=== PATIENT | female | born 1990 | race Caucasian/White ===

== ENCOUNTER 2023-11-30 09:53 | Outpatient (OUT) | payer BC, SELFPAY ==
--- NOTE | 2023-11-30 10:30 | US_ITS ---
The [address] [address] Patient Name: AMANDA PINEDA MRN: [id number] date: 1990 Sex: F Assigned Patient Location: [facility] Current Patient Location: Accession/Order Number: [id number] Exam Date: 11/30/2023 10:30 Report Date: 12/01/2023 07:50 At the request of: SUSAN TREVIÑO Procedure: US pelvis w/ transvaginal EXAMINATION: US pelvis w/ transvaginal HISTORY: DYSPAREUNIA MENORRHAGIA COMPARISON: No relevant comparison available. FINDINGS: PICC line transabdominal and transvaginal images The uterus is normal in size, contour and echotexture measuring 9.4 x 4.8 x 6.7 cm. The uterus is anteverted and anteflexed. No focal myometrial mass. The endometrium measures 1.5 cm, correlate with the menstrual cycle The right ovary is normal showing 2.8 x 2.1 x 2.6 cm. Normal color and Doppler flow. Normal subcentimeter follicles. The left ovary is normal measuring 2.8 x 2.1 x 3.0 cm. Normal color and Doppler flow. Normal subcentimeter follicles. US/US pelvis w/ transvaginal IMPRESSION: Endometrial stripe measures 1.5 cm, correlate with the menstrual cycle Electronically authenticated by: NATALIE SUERO Date: 12/01/2023 07:50
== END 2023-11-30 09:54 | disposition home or self-care (01) ==
LOC: NOMS 09:53
PROVIDERS: PCP Family Medicine; Visit Provider Obstetrics & Gynecology
DX: N94.10 Unspecified dyspareunia (principal); N92.0 Excessive and frequent menstruation with regular cycle
CPT/HCPCS: 76830; 76856

== ENCOUNTER 2023-12-25 14:47 | Outpatient (OUT) | payer BC, SELFPAY | END 2023-12-25 14:48 | disposition home or self-care (01) | LOC: PST 14:47 | PROVIDERS: PCP Family Medicine; Visit Provider Urology | DX: Z01.818 Encounter for other preprocedural examination (principal); R32 Unspecified urinary incontinence; K21.9 Gastro-esophageal reflux disease without esophagitis; I10 Essential (primary) hypertension ==

== ENCOUNTER 2023-12-28 07:41 | Day surgery (SDC) | payer BC, SELFPAY ==
[2023-12-28] MEDS: LIDOCAINE 2% JELLY 10 ML UR (08:37)
[2023-12-28 08:38] VITALS: BP 145/65; PULSE 83; O2SAT 100
[2023-12-28 08:48] VITALS: BP 134/70; PULSE 82; O2SAT 100
--- NOTE | 2023-12-28 08:53 | PM.URSON ---
Urology Surgery Operative Note Operative Note Procedure Date: 12/28/23 Time Out Performed: yes Pre-op Diagnosis: Stress incontinence Post-op Diagnosis: same as pre-op Procedures performed: 1. Cystoscopy. 2. Pelvic exam Anesthesia: local Primary Surgeon: Amor Suarez Complications: None Estimated blood loss (mL): 0 Findings: 1. Grade 1 cystocele. 2. Posterior laxity. 3. Significant stress incontinence Specimens: None Drains: None Indications for Procedures: This lady has rather significant mixed incontinence. Most of this seems to be in the form of stress. She is attempting to get started on Myrbetriq 25 mg daily to control her urge component, but she is having difficulty getting the generic version. She now presents for cystoscopy. She has signed an informed consent after risks were explained to Detailed description of Procedure: The patient was kept on the gurney bed and brought into the endoscopy suite. She was in the supine position. Timeout was done by all parties in the room. We all agreed upon the patient's identification and the planned procedures for this patient. 2% lidocaine gel was passed per urethra after her genitalia were sterilely prepped and draped in the usual fashion. I started by passing flexible cystoscope per urethra and into the bladder. The urethra was unremarkable. Careful panendoscopy in the bladder revealed no evidence of any tumors, stones or lesions. The scope was retroverted upon itself and no new findings were noted. The scope was then removed after the patient felt very full. I then had her do the Valsalva maneuver and she had very significant stress incontinence in the form of a stream. She also demonstrated grade 1 cystocele and definite posterior laxity. We then had a discussion regarding the purpose of a mid urethral vaginal sling and that urgency could be a persistent component after getting this procedure done. She demonstrated understanding. She was then discharged to home.
== END 2023-12-28 09:00 | disposition home or self-care (01) ==
PROVIDERS: PCP Family Medicine; Visit Provider Urology
PROC: (CPT 52000; principal; 2023-12-28 08:15)
DX: N39.46 Mixed incontinence (principal); N81.10 Cystocele, unspecified
CPT/HCPCS: 52000

== ENCOUNTER 2024-02-08 13:22 | Outpatient (REF) | payer BC, SELFPAY | END 2024-02-08 13:23 | disposition home or self-care (01) | LOC: LAB 13:22 | PROVIDERS: PCP Family Medicine; Visit Provider Obstetrics & Gynecology | DX: N92.0 Excessive and frequent menstruation with regular cycle (principal) | CPT/HCPCS: 88305 ==

== ENCOUNTER 2024-02-18 10:58 | Outpatient (OUT) | payer BC, SELFPAY ==
--- OUTSIDE RECORDS SUMMARY | 2024-02-18 11:15 | XMS_ITS | CCD ---
Author Organization [facility] Care Team Providers Care Finish Opener Name Role Phone PIPPA ISLAS Primary Care Physician Amor SUAREZ Attending Unavailable Amor SUAREZ Attending Unavailable Pippa Islas MD Primary Care Provider MASHA SIMON Attending Unavailable SHEILA SANTIAGO Attending Unavailable SUSAN SUH Attending Unavailable SHEILA SANTIAGO Referring Unavailable SUSAN SUH Attending Unavailable Unavailable Primary Care Provider UnavailCALEB Wright Attending Unavailable SUSAN SUH Referring Unavailable Allergies Allergy Classification Reported Allergen(s) Allergy Type Date of Onset Reaction(s) Facility (6 sources) Latex; Translations: [Latex] Propensity to adverse reactions to substance 4 Swelling (finding), Eruption of skin (disorder), Rash, Swelling [facility] (2 sources) Salicylic Acid; Translations: [SALICYLATES] Drug Allergy 4 Other [facility] (1 source) Other Allergy to substance 4 Diarrhea [facility] (2 sources) Salicylic Acid Drug Allergy 4 [facility] (2 sources) MILK CONTAINING PRODUCTS (DAIRY); Translations: [MILK CONTAINING PRODUCTS (DAIRY)] Propensity to adverse reactions to food (disorder) 4 Diarrhea [facility] Medications Current Medications Medication Drug Class(es) Dates Sig (Normalized) Sig (Original) 24 hr mirabegron 25 mg extended release oral tablet (1 source) beta3-Adrenergic Agonist Start: 12-21-2023 take 1 tablet by mouth once daily Myrbetriq 25 mg oral tablet, extended release 25 mg = 1 tab(s), Oral, Daily, # 30 tab(s), Refills(s) 11, Pharmacy: [id number], 168, cm, 12/21/23 9:28:00 EDT, Height/Length Dosing, 82, kg, 12/21/23 9:28:00 EDT, Weight Dosing Start Date: 12/21/23 Status: Ordered tumeric, vitamin D, vitamin C, zinc powder (1 source) Start: 12-21-2023 tumeric, vitamin D, vitamin C, zinc powder tumeric, vitamin D, vitamin C, zinc powder, Oral, Daily Start Date: 12/21/23 Status: Ordered Turmeric extract (2 sources) turmeric 400 mg capsule Take by mouth. Active Turmeric (QC PAULETTE CHRISTIANO COMPLEX PO) Take by mouth Active vibegron (GEMTESA) 75 mg tablet (1 source) Start: 02-16-2024 take 1 tablet by mouth in the morning vibegron (GEMTESA) 75 mg tablet Take 75 mg by mouth in the morning. 30 tablet 5 02/16/2024 Active Vitamin C-Vitamin D-Zinc (D3/VITAMIN C/ZINC PO) (1 source) Vitamin C-Vitami n D-Zinc (D3/VITAMIN C/ZINC PO) Take by mouth Active Completed/Discontinued Medications Medication Drug Class(es) Dates Sig (Normalized) Sig (Original) cephalexin 500 mg oral capsule (1 source) Cephalosporin Antibacterial Start: 12-21-2023 End: 12-23-2023 take 1 tablet by mouth once daily Keflex 500 mg Cap 500 mg = 1 cap(s), Oral, Daily, Take one tab one day prior to the procedure and then one tab after the procedure, X 2 day(s), # 2 cap(s), Refills(s) 0, Pharmacy: [id number], 168, cm, 12/21/23 9:28:00 EDT, Height/Length Dosing, 82, kg, 12/21/23 9:28:00 EDT, Weight Dosing Start Date: 12/21/23 Stop Date: 12/23/23 Status: Ordered Problems Problem Classification Problem Date Documented Date Episodic/Chronic Abdominal pain (1 source) Pain in female pelvis; Translations: [Pelvic and perineal pain] 02-09-2024 Episodic Attention-deficit, conduct, and disruptive behavior disorders (1 source) Attention deficit hyperactivity disorder 12-17-2023 Chronic Esophageal disorders (1 source) Gastroesophageal reflux disease 12-17-2023 Chronic Essential hypertension (1 source) Hypertensive disorder 12-21-2023 Chronic Genitourinary symptoms and ill-defined conditions (9 sources) Mixed incontinence; Translations: [Incontinence] Onset: 12-21-2023 Chronic Headache; including migraine (1 source) Headache 12-21-2023 Episodic Menstrual disorders (1 source) Menorrhagia; Translations: [Excessive and frequent menstruation with regular cycle] 02-09-2024 Chronic Mood disorders (1 source) Depressive disorder 12-17-2023 Chronic Other diseases of bladder and urethra (2 sources) Overactive bladder; Translations: [Overactive bladder] Onset: 02-16-2024 02-16-2024 Chronic Other female genital disorders (1 source) Abnormal uterine bleeding; Translations: [Abnormal uterine and vaginal bleeding, unspecified] 02-09-2024 Chronic Other female genital disorders (1 source) Unspecified dyspareunia; Translations: [Unspecified dyspareunia] Onset: 02-15-2024 Chronic Other female genital disorders (1 source) Pain in female genitalia on intercourse 02-16-2024 Chronic Other female genital disorders (1 source) Disorder of vulva; Translations: [Other specified conditions associated with female genital organs and menstrual cycle] 02-09-2024 Episodic Other female genital disorders (1 source) Hypertrophy of labia; Translations: [Unspecified hypertrophy of vulva] 02-09-2024 Episodic Results Test Name Value Interpretation Reference Range Facility Measure post void residualon 02-15-2024 Volume 69 CC [facility] POCT urinalysis dipstick onl yon 02-15-2024 External Poct Urine Blood Negative [facility] External Poct Urine Glucose Negative [facility] External Poct Urine Ketones Negative [facility] External Poct Urine Leukocyte Esterase Negative [facility] External Poct Urine Nitrite Negative [facility] External Poct Urine Ph 5 [facility] External Poct Urine Protein Negative [facility] HCG ( test) Ql (U)o n 02-09-2024 Interpretation and review of laboratory results Normal [facility] Healthcare Preg Test, Ur Negative Negative [facility] Health care [facility] Ambulatory Visit Summaryon 1 Ambulatory Visit Summary Ambulatory Visit Summary FLACA ARNOLD :1990 Visit Date:12/21/2023 Ambulatory Visit Instructions Your Diagnosis Mixed incontinence Your Care Team Attending Physician - MILES MOHR, Amor Jacobs Primary Care Physician - ROSHAN MOHR, PIPPA Perrin This Is Your Medications List Contact prescribing physician if questions or concerns Non-Formulary Medication (tumeric, vitamin D, vitamin C, zinc powder) Procedures Performed Tonsillectomy. Discharge Vitals Heart Rate (Peripheral) 88 Respiratory Rate 16 Blood Pressure 148/94 Height 168 cm Height 66 in Weight 82 kg Weight 180.4 lb BMI 29.05 What to do next You Need to Schedule the Following Appointments Follow Up with MILES MOHR, ISAAC Mc When: Comments: sched cysto w/ pelvic exam Where: [facility] [address], [place] [address]- [phone] Medications What How Much When Instructions Unchanged Non-Formulary Medication (tumeric, vitamin D, vitamin C, zinc powder) Every day Contact prescribing physician if questions or concerns Allergies Latex (Swelling, Rash) Problems Ongoing - Any problem that you are currently receiving treatment for. ADHD Depression GERD (gastroesophageal reflux disease) Headache Hypertension Mixed incontinence Patient Survey You may receive a survey via text or e-mail asking about your office visit. Please share your experience with us by completing your survey. We appreciate your feedback and thank you for choosing us for your care. Education Materials Cystoscopy Cystoscopy is a procedure that is used to help diagnose and sometimes treat conditions that affect the lower urinary tract. The lower urinary tract includes the bladder and the urethra. The urethra is the tube that drains urine from the bladder. Cystoscopy is done using a thin, tube-shaped instrument with a light and camera at the end (cystoscope). The cystoscope may be hard or flexible, depending on the goal of the procedure. The cystoscope is inserted through the urethra, into the bladder. Cystoscopy may be recommended if you have: ? Urinary tract infections that keep coming back. ? Blood in the urine (hematuria). ? An inability to control when you urinate (urinary incontinence) or an overactive bladder. ? Unusual cells found in a urine sample. ? A blockage in the urethra, such as a urinary stone. ? Painful urination. ? An abnormality in the bladder found during an intravenous pyelogram (IVP) or CT scan. Cystoscopy may also be done to remove a sample of tissue to be examined under a microscope (biopsy). Tell a health care provider about: ? Any allergies you have. ? All medicines you are taking, including vitamins, herbs, eye drops, creams, and wlso-jer-azwjsyz medicines. ? Any problems you or family members have had with anesthetic medicines. ? Any blood disorders you have. ? Any surgeries you have had. ? Any medical conditions you have. ? Whether you are or may be . What are the risks? Generally, this is a safe procedure. However, problems may occur, including: ? Infection. ? Bleeding. ? Allergic reactions to medicines. ? Damage to other structures or organs. What happens before the procedure? Medicines Ask your health care provider about: ? Changing or stopping your regular medicines. This is especially important if you are taking diabetes medicines or blood thinners. ? Taking medicines such as aspirin and ibuprofen. These medicines can thin your blood. Do not take these medicines unless your health care provider tells you to take them. ? Taking ejyg-sca-ndtclfv medicines, vitamins, herbs, and supplements. Tests You may have an exam or testing, such as: ? X-rays of the bladder, urethra, or kidneys. ? CT scan of the abdomen or pelvis. ? Urine tests to check for signs of infection. General instructions ? Follow instructions from your health care provider about eating or drinking restrictions. ? Ask your health care provider what steps will be taken to help prevent infection. These steps may include: ? Washing skin with a germ-killing soap. ? Taking antibiotic medicine. ? Plan to have a responsible adult take you home from the hospital or clinic. What happens during the procedure? ? You will be given one or more of the following: ? A medicine to help you relax (sedative). ? A medicine to numb the area (local anesthetic). ? The area around the opening of your urethra will be cleaned. ? The cystoscope will be passed through your urethra into your bladder. ? Germ-free (sterile) fluid will flow through the cystoscope to fill your bladder. The fluid will stretch your bladder so that your health care provider can clearly examine your bladder judd. ? Your doctor will look at the urethra and bladder. Your doctor may (more content not included)... Normal [facility] Urology Office/Clinic Noteon 12-21-2023 Urology Office/Clinic Note Urology Office/Clinic Note Chief Complaint New patient urinary retention HPI Staff 33 year old female new patient referred by Dr. Suh for urinary incontinence. Mixed incontinence x 2 years. Dysuria: denies Incomplete bladder emptying: yes, PVR: 0 ml Hematuria: denies Frequency: once every hour Urgency: yes Nocturia: 2 x a night Stream: denies hesitancy, has a strong stream Leaking: yes Post void dripping: denies Wearing pads/ Depends: pads daily, if need changing would change 3-4 x a day Urge incontinence: yes Stress incontinence: coughing, sneezing, etc Incontinence without Sensory Awareness: denies Abdominal pain: denies Flank pain: right side pain off and on. Sexual complaints: _ History of Present Illness Tests reviewed: reviewed UA, PVR, referral records I have reviewed the previous health record information and history for this patient from external providers. I have reviewed and verified the staff HPI to be accurate for this encounter. Review of Systems PHQ Score Initial Depression Screen Score: 0 SCORE ROS - Provider Constitutional: denies weight loss, denies hot flashes. Eyes: denies eye problems. Gastrointestinal: denies nausea, denies vomiting. Cardiovascular: denies chest pain or angina. Integumentary: no dryness Musculoskeletal: denies musculoskeletal symptoms. ENMT: denies otolaryngeal symptoms. Respiratory: no shortness of breath. Heme/Lymph: denies easy bleeding tendency, denies easy bruising tendency. Psychiatric: no confusion, no anxiety. Genitourinary: See HPI. Physical Exam Vitals & Measurements HR: 88(Peripheral) RR: 16 BP: 148/94 HT: 66 in HT: 168 cm WT: 82 kg WT: 180.4 lb BMI: 29.05 General Appearance: alert , no acute distress, well nourished, well developed female. Assessment/Plan Flaca is a 33 yo female new pt referred by Dr. Suh for urinary incontinence. Has plans to get labioplasty and endometrial ablation. 1. Mixed incontinence (N39.46: Mixed incontinence) BBS 23. Vaginal delivery of 10lb, 6oz baby ~2yrs ago (no plans to have more children). Feels this caused almost all her urinary sxs. Did wear a pad for NATASHA prior to . Shares she limits water intake at times given severe urgency. Also has two pairs of underwear on hand when in public. Unable to do any physically activity, including raising her voice, without leaking. Wears pads which she soaks through when jumping or running. States she goes to the bathroom frequently during the day to prevent leakage, unsure if it is fully related to urgency or OAB. Voiding q1hr during the day. Able to make it to the bathroom. Unable to sleep during the night due to concerns for wetting herself. Reports she has more difficulty with emptying when drinking water vs when drinking decaf coffee. Shares she tries to drink 100oz of water per day. PVR today 0 mL. UA today negative for blood and infection. Hx of 2-3 UTIs, most recent during gestation. Discussed next steps including cysto with pelvic exam to evaluate candidacy for treatment options. Advised pt oral medications are typical treatment for urgency/UUI. Shares she prefers to avoid medications. Educated pt on risks/benefits/possib le SEs of bladder meds. Also discussed further research and evaluation will need done for starting medication given she is currently (does not have current plans to stop, possibly in the next year). Reports suggest it is safe to start with breast feeding. States she would be willing try medication. Volunteers she only breastfeeds prior to bedtime and feels benefits outweigh risks. -Will schedule cystoscopy with pelvic exam. The risks and benefits for cystoscopy have been discussed. The risks include bleeding, infection, and irritation of the bladder and urinary channel, among others. The patient, after being informed of procedural details and after questions have been answered, wishes to proceed. Full informed consent has been obtained. Will order Local anesthesia. -Start Myrbetriq ER 25mg qd. Rx sent to [facility]. Follow-up With When Contact Information MILES MOHR, Amor Jacobs, [facility] [address], [place] [address]- [phone] Additional Instructions: sched cysto w/ pelvic exam Patient Education Cystoscopy Urinary Incontinence I, Liz Daugherty, personally scribed for Dr. Suarez on 12/21/2023 10:07:37. . Documentation recorded by the scribe, Liz Daugherty, accurately reflects the services(s) I performed and decisions made by me. Authenticated by Dr. Suarez on 12/21/2023 10:15:41. Problem List/Past Medical History Ongoing ADHD Depression GERD (gastroesophageal reflux disease) Headache Hypertension Mixed incontinence Historical No qualifying data Procedure/Surgical History Tonsillectomy. Medications tumeric, vitamin D, vitamin C, zinc powder, Oral, Daily Allergies Latex (Swelling, Rash) Family (more content not included)... Normal [facility] Comment on above: Result Comment: Elec tronically Signed By: Amor SUAREZ MD\.br\Date and Time Signed: 12/21/23 10:15 EDT\.br\Electronically Co-Signed By: Liz Daugherty\.br\Date and Time Co-Signed: 12/21/23 10:08 EDT\.br\Electronically Co-Signed By: Liz Daugherty\.br\Date and Time Co-Signed: 12/21/23 10:12 EDT Vital Signs Date Time Vital Sign Value Performing Clinician Facility 02-15-2024 13:13-0500 Body height 165.7 cm Caleb Hurtado MD Work Phone: [facility] 02-15-2024 13:13-0500 Body mass index (BMI) [Ratio] 32.53 kg/m2 Caleb Hurtado MD Work Phone: [facility] 02-15-2024 13:13-0500 Body weight 89.36 kg Caleb Hurtado MD Work Phone: [facility] 02-15-2024 13:13-0500 Diastolic blood pressure 77 mm[Hg] Caleb Hurtado MD Work Phone: [facility] 02-15-2024 13:13-0500 Heart rate 91 /min Caleb Hurtado MD Work Phone: [facility] 02-15-2024 13:13-0500 Systolic blood pressure 125 mm[Hg] Caleb Hurtado MD Work Phone: [facility] 02-09-2024 13:38-0500 Body mass index (BMI) [Ratio] 31.71 kg/m2 Susan Angeli DO Work Phone: [facility] 02-09-2024 13:38-0500 Body weight 87.09 kg Susan Angeli DO Work Phone: [facility] 02-09-2024 13:38-0500 Diastolic blood pressure 70 mm[Hg] Susan Angeli DO Work Phone: [facility] 02-09-2024 13:38-0500 Systolic blood pressure 110 mm[Hg] Susan Angeli DO Work Phone: [facility] 12-21-2023 09:21-0400 Blood Pressure Location Amor SUAREZ [facility] 12-21-2023 09:21-0400 Diastolic blood pressure 94 mm[Hg] Amor SUAREZ [facility] 12-21-2023 09:21-0400 Heart rate 88 /min Amor SUAREZ [facility] 12-21-2023 09:21-0400 Respiratory rate 16 /min Amor SUAREZ [facility] 12-21-2023 09:21-0400 Systolic blood pressure 148 mm[Hg] Amor SUAREZ [facility] Encounters Encounter Date Encounter Type Care Provider Facility Start: 02-15-2024 End: 02-15-2024 Chart abstracting Caleb Hurtado MD Work Phone: [facility] Start: 02-15-2024 End: 02-15-2024 [facility]ulatory [facility] Start: 02-15-2024 End: 02-15-2024 Office outpatient new 45 minutes Caleb Hurtado MD Work Phone: [facility] Comment on above: Mixed stress and urg e urinary incontinence (Primary Dx); OAB (overactive bladder) Start: 02-09-2024 End: 02-09-2024 ambulatory SUSAN ANGELI Not Available Start: 02-09-2024 End: 02-09-2024 Patient encounter procedure Susan Suh DO Work Phone: [facility] Comment on above: Pre-op examination; Menorrhagia with regular cycle; Abnormal uterine bleeding (AUB); Pelvic pain in female; Labial pain; Labia enlarged Start: 02-09-2024 End: 02-09-2024 Preprocedural examination done Susan Suh DO Work Phone: [facility] Start: 12-28-2023 End: 12-28-2023 ambulatory Amor Reynaldo SUAREZ Facility:CD:[id number] Start: 12-21-2023 End: 12-21-2023 ambulatory Amor SUAREZ Facility:[facility] Start: 12-21-2023 End: 12-21-2023 Patient encounter procedure Amor Reynaldo SUAREZ [facility] Start: 11-24-2023 ambulatory Amor SUAREZ Facility :[facility] Start: 11-18-2023 End: 11-18-2023 ambulatory SUSAN SUH Not Available Start: 10-12-2023 End: 10-12-2023 ambulatory SHEILA SANTIAGO Not Available Start: 09-09-2023 End: 09-09-2023 ambulatory MASHA ALFRED Not Available Procedures Date Procedure Procedure Detail Performing Clinician Start: 02-15-2024 MEASURE POST VOID RESIDUAL Caleb Hurtado MD Work Phone: Start: 02-15-2024 Urnls dip stick/tabl et rgnt non-auto w/o micrscp Caleb Hurtado MD Work Phone: Start: 02-09-2024 Urine test visual color cmprsn meths Susan Sorianoo DO Work Phone: Tonsillectomy Amor SUAREZ Plan of Treatment Date Care Activity Detail Author Start: 02-14-2025 Adult BMI Screening Adult BMI Screen ing [facility] Start: 02-14-2025 Tobacco Screening Tobacco Screening [facility] Start: 06-15-2024 End: 06-15-2024 Patient encounter procedure 06/15/2024 3:00 PM EDT Office Visit [facility] [address] [place] [address] Caleb Hurtado MD [address] [facility] [address] [place] [address] [facility] Start: 03-14-2024 End: 03-14-2024 Patient encounter procedure 03/14/2024 2:30 PM EST Office Visit [facility] [address] [place] [id number] Janene Maria PA [address] [place] [address] [facility] Start: 11-15-2023 Influenza vaccination N [facility] Start: 06-26-2021 Screening for malign ant neoplasm of cervix [facility] Start: 06-26-2012 Screening for malign ant neoplasm of cervix Pap Smear [facility] Start: 06-26-2010 DTaP,Tdap and Td Vaccines (1 - Tdap) DTaP,Tdap and Td Vaccines (1 - Tdap) [facility] Start: 06-26-2009 Adult BMI Follow Up Plan Adult BMI Follow Up Plan [facility] Start: 2003 Depression Screening Depression Scre ening [facility] Endometrial biopsy Endometrial b iopsy Procedures Routine Menorrhagia with regular cycle Ordered: 02/09/2024 [facility] Work Phone: Comment on above: Ordered: 02/09/2024 Immunizations Immunization Date Immunization Notes Care Provider Fa cility 11-25-2020 SARS-CoV-2 (COVID-19 ) mRNA BNT-162b2 jeffx Amor SUAREZ [facility] Comment on above: Result Comment: 2023: [facility] Payers Date Payer Category Payer Unknown [id number] 2023 [employer] Blue [employer] BCBS [id number] 2023 Blue Cross Blue [facility] - Other [employer] [id number] 2023 Unknown [id number] 1990 Unknown [id number] 1990 Unknown [id number] 1990 Unknown [id number] .[id number] 1990 Unknown [id number] 1990 Unknown [id number] 1990 Unknown [id number] 1990 Unknown [id number] 1990 Unknown [id number] Social History Date Type Detail Facility Tobacco smoking status [facility] Start: 09-08-2023 End: 02-15-2024 Sex Assigned At Female [facility] Start: 09-09-2023 End: 02-15-2024 Tobacco smoking status NHIS Never smoked tobacco [facility] Start: 09-09-2023 End: 02-15-2024 Tobacco use and exposure Smokeless tobacco non-user [facility] Start: 11-18-2023 End: 02-16-2024 Alcoholic beverage intake Current drinker of alcohol (finding) [facility] Start: 09-08-2023 End: 02-15-2024 History of Social function [facility] How often do you nee d to have someone help you when you read instructions, pamphlets, or other written material from your doctor or pharmacy [SILS] Never [facility] Do you belong to any clubs or organizations such as buddhism groups, unions, fraternal or athletic groups, or school groups? No [facility] Are you now , , , , never or living with a partner? [facility] How often to you hav e a drink containing alcohol? Monthly or less [facility] How many standard dr inks containing alcohol do you have on a typical day? 1 or 2 [facility] How often do you hav e 6 or more drinks on 1 occasion? Less than monthly [facility] How hard is it for y ou to pay for the very basics like food, housing, medical care, and heating Somewhat hard [facility] Do you feel stress - tense, restless, nervous, or anxious, or unable to sleep at night because your mind is troubled all the time - these days [OSQ] Only a little [facility] (I/We) worried wheth er (my/our) food would run out before (I/we) got money to buy more. Never true [facility] Start: 1990 Sex assigned at Female [facility] Start: 09-07-2023 Gender identity Identifies as female gender (finding) [facility] Start: 09-07-2023 Sexual orientation Heterosexual (finding) [facility] Start: 1990 Sex assigned at Not on file [facility] Start: 10-19-2014 Sex Female (finding) [facility] Functional Status Date Assessment Result Facility 12-21-2023 Functional Status N/A [facility] History of Present illness Narrative 02-15-2024 Caleb Hurtado MD - 02/15/2024 1:15 PM EST Note Date & Type Note Facility 02-15-2024 History of Presen t illness Narrative SUBJECTIVE Chief Complaint: UI HPI Ms. Flaca Arnold is a 33 y.o. 1 para 1 who is referred by for evaluation of urinary incontinence. She is here for a 2nd opinion and was previously seen by . She is scheduled to undergo bilateral salpingectomy, endometrial ablation, bilateral labioplasty, with Dr. Suh on March 02, 2024. She was considering undergoing treatment for urinary incontinence concomitantly and had urodynamic testing with Dr. Suarez. She was offered a urethral sling. She wanted to discuss her options with the another provider. She notes urinary incontinence which has been present for many years. It has gotten worse since the of her trialed about 2 years ago. She leaks several times daily in variable amounts. She uses 1-2 pads per day. Most of her leakage occurs with Valsalva. Urge related leakage is rare. She notes urinary frequency but this is primarily due to her trying to avoid leakage. She voids twice nightly. No dysuria, gross hematuria, recurrent infections, symptoms of voiding dysfunction. She has previously tried pelvic floor physical therapy. She is unsure if this was helpful. She has an appointment to restart pelvic floor physical therapy soon. She reports that she underwent urodynamic testing and was told that she had stress incontinence. She denies symptoms of prolapse. She denies chronic constipation, chronic diarrhea, and fecal incontinence. Past Medical History: Diagnosis Date ADHD Depression GERD (gastroesophageal reflux disease) Past Surgical History: Procedure Laterality Date TONSILLECTOMY Social History Tobacco Use Smoking status: Never Smokeless tobacco: Never Substance Use Topics Alcohol use: Yes Drug use: Yes Types: Marijuana No family history on file. Current Outpatient Medications: turmeric 400 mg capsule, Take by mouth., Disp: , Rfl: ALLERGIES Milk containing products (dairy), Salicylates, and Latex OBJECTIVE VITAL SIGNS BP 125/77 Pulse 91 Ht 165.7 cm (5' 5.25 ) Wt 89.4 kg (197 lb) LMP 02/05/2024 No BMI 32.53 kg/m PHYSICAL EXAM Constitutional: General: She is not in acute distress. Cardiovascular: Rate: Normal rate. Lower extremity edema: none. Pulmonary: Effort: No respiratory distress, normal effort. Abdominal: General: There is no distension. Palpations: Abdomen is soft. There is no hepatomegaly, splenomegaly or mass. Tenderness: There is no abdominal tenderness. Hernia: No hernia is observable. Pelvic: External exam Vulva and introitus: Normal appearance for age, no lesions, no erythema. Urethra: No prolapse, mass, urethral pain or urethral lesion. Bladder: Not tender, no distention. Bartholin's glands: Normal size, non-tender. Perineum/anus: Normal appearance, no lesions or hemorrhoids. Internal exam Vagina: Mucosa is healthy and pink, no discharge. Cervix: Normal os, no lesions, no cervical motion tenderness. Uterus: Normal size and position, mobile, no tenderness, no masses. Adnexa: Bimanual exam limited per body habitus, ovaries not palpable, no tenderness or masses. Rectum: CLARY deferred. Pelvic floor spasm/myalgia: None Leakage with hard coughing or Valsalva? not present Modified Pershing Scale 0-5: 1, minor muscle flicker POP-Q: Negative Standing Stress Test: Negative Voided Volume: 180 mL Results for orders placed or performed in visit on 02/15/24 POCT urinalysis dipstick only Collection Time: 02/15/24 1:35 PM Result Value Ref Range External Poct Urine Glucose Negative External Poct Urine Ketones Negative External Poct Urine Blood Negative External Poct Urine Ph 5.0 External Poct Urine Protein Negative External Poct Urine Nitrite Negative External Poct Urine Leukocyte Esterase Negative Measure post void residual Collection Time: 02/15/24 1:35 PM Result Value Ref Range Volume 69 CC ASSESSMENT/PLAN ICD-10-CM 1. Mixed stress and urge urinary incontinence N39.46 2. OAB (overactive bladder) N32.81 Impression and Plan: 33 y.o. female P1 with stress predominant mixed urinary incontinence. We discussed incontinence at length including epidemiology, pathophysiology, risk factors for development, associated symptoms, and treatment options. We discussed treatment options, from least to most invasive, including expectant management, strengthening the pelvic floor with Kegel exercises and/or pelvic floor physical therapy, dietary and behavioral modification, medication trial, continence pessary, and surgical management options. She was provided with written information on incontinence and overactive bladder from . She desires conservative management at this point and plans to proceed with her scheduled pelvic floor physical therapy appointment. In addition, she would like to move forward with a medication trial. She states that Myrbetriq is not covered by her insurance but Gemtesa may be. This has been sent to her pharmacy. She was counseled regarding potential side effects. We will reassess symptoms in 3 months. This chart note was put together with the assistance of a speech recognition program. While intending to generate a timely document that accurately reflects the contents of the visit, no guarantee can be provided that every grammatical or spelling mistake has been or will be identified or corrected. Thank you for your understanding when reviewing this and similarly generated notes. documented in this encounter [facility] History of Present illness Narrative 02-09-2024 Eladia Tequila - 02/09/2024 1:00 PM EST Note Date & Type Note Facility 02-09-2024 History of Presen t illness Narrative Images from the original note were not included. Reason for Appointment: Patient ID: Flaca Arnold is a 33 y.o. female who presents for Pre-op Visit and Endometrial Biopsy Patient presents today for Pre Op/Endometrial Biopsy appointment. Patient is scheduled to undergo Da Hugh assisted Bilateral Laparoscopic Salpingectomy, Endometrial Ablation with Katherine, and Labiaplasty on 03/02/[address] Suh at [facility]. MEDICATIONS Current Outpatient Medications Medication Instructions Turmeric (QC TUMERIC COMPLEX PO) Oral Vitamin C-Vitamin D-Zinc (D3/VITAMIN C/ZINC PO) Oral ALLERGIES Allergies Allergen Reactions Other Diarrhea Latex Rash and Swelling Salicylates Other PROBLEMS Active Ambulatory Problems Diagnosis Date Noted No Active Ambulatory Problems Resolved Ambulatory Problems Diagnosis Date Noted No Resolved Ambulatory Problems Past Medical History: Diagnosis Date ADHD (attention deficit hyperactivity disorder) (CMS/HCC) Allergic Depression (CMS/HCC) GERD (gastroesophageal reflux disease) HISTORY PAST MEDICAL HISTORY SOCIAL HISTORY Past Medical History: Diagnosis Date ADHD (attention deficit hyperactivity disorder) (CMS/HCC) Allergic Depression (CMS/HCC) GERD (gastroesophageal reflux disease) Social History Tobacco Use Smoking status: Never Smokeless tobacco: Never Vaping Use Vaping status: Never Used Substance Use Topics Alcohol use: Yes Drug use: Yes Types: Marijuana FAMILY HISTORY No family history on file. SURGICAL HISTORY Past Surgical History: Procedure Laterality Date TONSILLECTOMY REVIEW OF SYSTEMS Review of Systems: Review of Systems Constitutional: Negative. HENT: Negative. Eyes: Negative. Respiratory: Negative. Cardiovascular: Negative. Gastrointestinal: Negative. Genitourinary: Positive for dyspareunia, menstrual problem, pelvic pain, urgency and vaginal pain. Musculoskeletal: Negative. Skin: Negative. Neurological: Negative. All other systems reviewed and are negative. Hematological: Negative. Endocrine: Negative. Allergic/Immunologic: Negative. OBJECTIVE Objective: Physical Exam Constitutional: Appearance: Normal appearance. She is well-developed. Genitourinary: Vulva normal. Genitourinary Comments: Enlarged bilateral Labia with hole visualized on right side. Cardiovascular: Rate and Rhythm: Normal rate and regular rhythm. Pulmonary: Effort: Pulmonary effort is normal. Breath sounds: Normal breath sounds. Abdominal: General: Bowel sounds are normal. There is no distension. Palpations: Abdomen is soft. Tenderness: There is no abdominal tenderness. There is no guarding or rebound. Musculoskeletal: General: No swelling. Normal range of motion. Right lower leg: No edema. Left lower leg: No edema. Neurological: Mental Status: She is alert and oriented to person, place, and time. Skin: General: Skin is warm and dry. Psychiatric: Mood and Affect: Mood normal. Behavior: Behavior normal. Vitals and nursing note reviewed. Exam conducted with a health safety specialist present. Vitals: Estimated body mass index is 30.55 kg/m as calculated from the following: Height as of 09/09/23: 5' 5.25 . Weight as of 11/18/23: 185 lb. BP: No LMP recorded. ASSESSMENT & PLAN ICD-10-CM 1. Pre-op examination Z01.818 2. Menorrhagia with regular cycle N92.0 3. Abnormal uterine bleeding (AUB) N93.9 4. Pelvic pain in female R10.2 5. Labial pain N94.89 6. Labia enlarged N90.60 EMBX: Patient was placed in dorsal lithotomy position with feet in stirrups. A sterile speculum was placed into the vagina and the cervix was visualized. The cervix was grasped with a single tooth tenaculum. The endometrial pipette was placed through the cervix into the uterus, endometrial curettage was performed and sampling was obtained, endometrial curettings were placed in formalin, and single tooth tenaculum was removed. Excellent hemostasis was assured. All instruments were removed from vagina. Pre Op: Patient is doing well but has desire for sterilization and has complaints of bleeding, pelvic pain and labia discomfort. Patient has tried hormone therapy in the past but all attempts to subside patients issues of bleeding have failed. Patient has been examined and has been noted to have an enlarged labia with a hole that has form from scar tissue breaking down following her vaginal of her 10 lbs 6 oz baby that is causing labial pain and discomfort. Patient stated that this has been ongoing issue since her son was born on 12/22/2021 and the issue has increased over time. Patient stated she has tried using lubricant and creams vaginally to help with pain during intercourse and physical activity with no improvement. Surgicallly repairing her labia would be the best course of action to correct labia pain, hole in labia, and enlarged labia/atypical genitalia that has only worsened since childbearing years. I have discussed conservative management vs. surgical management with the patient in detail and patient desires surgical management at this time. Patient has voiced understanding that a Bilateral Salpingectomy is considered to be permanent and patient will undergo Da Hugh assisted Bilateral Laparoscopic Salpingectomy, Endometrial Ablation with Katherine, & Labiaplasty on 03/02/2024. Surgical consents were signed, mmc was reviewed, and patient is to proceed to [facility] OR. Follow Up: Patient is to follow up between 1-2 weeks post op to assess proper healing and recovery from procedure. Documented by Jacqueline Larios LPN on behalf of: Susan Suh DO documented in this encounter [facility] Discharge instructions 12-21-2023 Note Date & Type Note Facility 12-21-2023 Hospital Discharg e instructions Patient Education 12/21/2023 09:54:41 Cystoscopy Cystoscopy Cystoscopy is a procedure that is used to help diagnose and sometimes treat conditions that affect the lower urinary tract. The lower urinary tract includes the bladder and the urethra. The urethra is the tube that drains urine from the bladder. Cystoscopy is done using a thin, tube-shaped instrument with a light and camera at the end (cystoscope). The cystoscope may be hard or flexible, depending on the goal of the procedure. The cystoscope is inserted through the urethra, into the bladder. Cystoscopy may be recommended if you have: Urinary tract infections that keep coming back. Blood in the urine (hematuria). An inability to control when you urinate (urinary incontinence) or an overactive bladder. Unusual cells found in a urine sample. A blockage in the urethra, such as a urinary stone. Painful urination. An abnormality in the bladder found during an intravenous pyelogram (IVP) or CT scan. Cystoscopy may also be done to remove a sample of tissue to be examined under a microscope (biopsy). Tell a health care provider about: Any allergies you have. All medicines you are taking, including vitamins, herbs, eye drops, creams, and wypm-xqk-xaajyng medicines. Any problems you or family members have had with anesthetic medicines. Any blood disorders you have. Any surgeries you have had. Any medical conditions you have. Whether you are or may be . What are the risks? Generally, this is a safe procedure. However, problems may occur, including: Infection. Bleeding. Allergic reactions to medicines. Damage to other structures or organs. What happens before the procedure? Medicines Ask your health care provider about: Changing or stopping your regular medicines. This is especially important if you are taking diabetes medicines or blood thinners. Taking medicines such as aspirin and ibuprofen. These medicines can thin your blood. Do not take these medicines unless your health care provider tells you to take them. Taking eowd-kcc-qlfjnzp medicines, vitamins, herbs, and supplements. Tests You may have an exam or testing, such as: X-rays of the bladder, urethra, or kidneys. CT scan of the abdomen or pelvis. Urine tests to check for signs of infection. General instructions Follow instructions from your health care provider about eating or drinking restrictions. Ask your health care provider what steps will be taken to help prevent infection. These steps may include: ?Washing skin with a germ-killing soap. ?Taking antibiotic medicine. Plan to have a responsible adult take you home from the hospital or clinic. What happens during the procedure? You will be given one or more of the following: ?A medicine to help you relax (sedative). ?A medicine to numb the area (local anesthetic). The area around the opening of your urethra will be cleaned. The cystoscope will be passed through your urethra into your bladder. Germ-free (sterile) fluid will flow through the cystoscope to fill your bladder. The fluid will stretch your bladder so that your health care provider can clearly examine your bladder judd. Your doctor will look at the urethra and bladder. Your doctor may take a biopsy or remove stones. The cystoscope will be removed, and your bladder will be emptied. The procedure may vary among health care providers and hospitals. What can I expect after the procedure? After the procedure, it is common to have: Some soreness or pain in your abdomen and urethra. Urinary symptoms. These include: ?Mild pain or burning when you urinate. Pain should stop within a few minutes after you urinate. This may last for up to 1 week. ?A small amount of blood in your urine for several days. ?Feeling like you need to urinate but producing only a small amount of urine. Follow these instructions at home: Medicines Take ezod-fbx-ilrdnka and prescription medicines only as told by your health care provider. If you were prescribed an antibiotic medicine, take it as told by your health care provider. Do not stop taking the antibiotic even if you start to feel better. General instructions Return to your normal activities as told by your health care provider. Ask your health care provider what activities are safe for you. If you were given a sedative during the procedure, it can affect you for several hours. Do not drive or operate machinery until your health care provider says that it is safe. Watch for any blood in your urine. If the amount of blood in your urine increases, call your health care provider. Follow instructions from your health care provider about eating or drinking restrictions. If a tissue sample was removed for testing (biopsy) during your procedure, it is up to you to get your test results. Ask your health care provider, or the department that is doing the test, when your results will be ready. Drink enough fluid to keep your urine pale yellow. Keep all follow-up visits. This is important. Contact a health care provider if: You have pain that gets worse or does not get better with medicine, especially pain when you urinate. You have trouble urinating. You have more blood in your urine. Get help right away if: You have blood clots in your urine. You have abdominal pain. You have a fever or chills. You are unable to urinate. Summary Cystoscopy is a procedure that is used to help diagnose and sometimes treat conditions that affect the lower urinary tract. Cystoscopy is done using a thin, tube-shaped instrument with a light and camera at the end. After the procedure, it is common to have some soreness or pain in your abdomen and urethra. Watch for any blood in your urine. If the amount of blood in your urine increases, call your health care provider. If you were prescribed an antibiotic medicine, take it as told by your health care provider. Do not stop taking the antibiotic even if you start to feel better. This information is not intended to replace advice given to you by your health care provider. Make sure you discuss any questions you have with your health care provider. Document Revised: 11/13/2021 Document Reviewed: 10/12/2020 [employer] Patient Education 2023 [employer]. 12/21/2023 09:54:38 Urinary Incontinence Urinary Incontinence Urinary incontinence refers to a condition in which a person is unable to control where and when to pass urine. A person with this condition will urinate involuntarily. This means that the person urinates when he or she does not mean to. What are the causes? This condition may be caused by: Medicines. Infections. Constipation. Overactive bladder muscles. Weak bladder muscles. Weak pelvic floor muscles. These muscles provide support for the bladder, intestine, and, in women, the uterus. Enlarged prostate in men. The prostate is a gland near the bladder. When it gets too big, it can pinch the urethra. With the urethra blocked, the bladder can weaken and lose the ability to empty properly. Surgery. Emotional factors, such as anxiety, stress, or post-traumatic stress disorder (PTSD). Spinal cord injury, nerve injury, or other neurological conditions. Pelvic organ prolapse. This happens in women when organs move out of place and into the vagina. This movement can prevent the bladder and urethra from working properly. What increases the risk? The following factors may make you more likely to develop this condition: Age. The older you are, the higher the risk. Obesity. Being physically inactive. and childbirth. Menopause. Diseases that affect the nerves or spinal cord. Long-term, or chronic, coughing. This can increase pressure on the bladder and pelvic floor muscles. What are the signs or symptoms? Symptoms may vary depending on the type of urinary incontinence you have. They include: A sudden urge to urinate, and passing urine involuntarily before you can get to a bathroom (urge incontinence). Suddenly passing urine when doing activities that force urine to pass, such as coughing, laughing, exercising, or sneezing (stress incontinence). Needing to urinate often but urinating only a small amount, or constantly dribbling urine (overflow incontinence). Urinating because you cannot get to the bathroom in time due to a physical disability, such as arthritis or injury, or due to a communication or thinking problem, such as Alzheimer's disease (functional incontinence). How is this diagnosed? This condition may be diagnosed based on: Your medical history. A physical exam. Tests, such as: ?Urine tests. ?X-rays of your kidney and bladder. ?Ultrasound. ?CT scan. ?Cystoscopy. In this procedure, a health care provider inserts a tube with a light and camera (cystoscope) through the urethra and into the bladder to check for problems. ?Urodynamic testing. These tests assess how well the bladder, urethra, and sphincter can store and release urine. There are different types of urodynamic tests, and they vary depending on what the test is measuring. To help diagnose your condition, your health care provider may recommend that you keep a log of when you urinate and how much you urinate. How is this treated? Treatment for this condition depends on the type of incontinence that you have and its cause. Treatment may include: Lifestyle changes, such as: ?Quitting smoking. ?Maintaining a healthy weight. ?Staying active. Try to get 150 minutes of moderate-intensity exercise every week. Ask your health care provider which activities are safe for you. ?Eating a healthy diet. ?Avoid high-fat foods, like fried foods. ?Avoid refined carbohydrates like white bread and white rice. ?Limit how much alcohol and caffeine you drink. ?Increase your fiber intake. Healthy sources of fiber include beans, whole grains, and fresh fruits and vegetables. Behavioral changes, such as: ?Pelvic floor muscle exercises. ?Bladder training, such as lengthening the amount of time between bathroom breaks, or using the bathroom at regular intervals. ?Using techniques to suppress bladder urges. This can include distraction techniques or controlled breathing exercises. Medicines, such as: ?Medicines to relax the bladder muscles and prevent bladder spasms. ?Medicines to help slow or prevent the growth of a man's prostate. ?Botox injections. These can help relax the bladder muscles. Treatments, such as: ?Using pulses of electricity to help change bladder reflexes (electrical nerve stimulation). ?For women, using a certified court/medical interpreter to prevent urine leaks. This is a small, tampon-like, disposable device that is inserted into the urethra. ?Injecting collagen or carbon beads (bulking agents) into the urinary sphincter. These can help thicken tissue and close the bladder opening. ?Surgery. Follow these instructions at home: Lifestyle Limit alcohol and caffeine. These can fill your bladder quickly and irritate it. Keep yourself clean to help prevent odors and skin damage. Ask your health care provider about special skin creams and cleansers that can protect the skin from urine. Consider wearing pads or adult diapers. Make sure to change them regularly, and always change them right after experiencing incontinence. General instructions Take hxgz-yre-ewbttfp and prescription medicines only as told by your health care provider. Use the bathroom about every 3 4 hours, even if you do not feel the need to urinate. Try to empty your bladder completely every time. After urinating, wait a minute. Then try to urinate again. Make sure you are in a relaxed position while urinating. If your incontinence is caused by nerve problems, keep a log of the medicines you take and the times you go to the bathroom. Keep all follow-up visits. This is important. Where to find more information National [place] of Diabetes and Digestive and Kidney Diseases: www.niddk.nih.gov [employer] [place] U[employer] Association: www.urologyhealth.org Contact a health care provider if: You have pain that gets worse. Your incontinence gets worse. Get help right away if: You have a fever or chills. You are unable to urinate. You have redness in your groin area or down your legs. Summary Urinary incontinence refers to a condition in which a person is unable to control where and when to pass urine. This condition may be caused by medicines, infection, weak bladder muscles, weak pelvic floor muscles, enlargement of the prostate (in men), or surgery. Factors such as older age, obesity, and childbirth, menopause, neurological diseases, and chronic coughing may increase your risk for developing this condition. Types of urinary incontinence include urge incontinence, stress incontinence, overflow incontinence, and functional incontinence. This condition is usually treated first with lifestyle and behavioral changes, such as quitting smoking, eating a healthier diet, and doing regular pelvic floor exercises. Other treatment options include medicines, bulking agents, medical devices, electrical nerve stimulation, or surgery. This information is not intended to replace advice given to you by your health care provider. Make sure you discuss any questions you have with your health care provider. Document Revised: 10/05/2020 Document Reviewed: 10/05/2020 [employer] Patient Education 2023 [employer]. Follow Up Care 11/24/2023 15:33:52 With:MILES MOHR, Amor Jacobs, URL Address: [facility] [address] , [place] [address]- [phone] When: Unknown Comments:sched cysto w/ pelvic exam [facility] Clinical Note 12-21-2023 Note Date & Type Note Facility 12-21-2023 Note Patient Education Urology Cystoscopy Cystoscopy is a procedure that is used to help diagnose and sometimes treat conditions that affect the lower urinary tract. The lower urinary tract includes the bladder and the urethra. The urethra is the tube that drains urine from the bladder. Cystoscopy is done using a thin, tube-shaped instrument with a light and camera at the end (cystoscope). The cystoscope may be hard or flexible, depending on the goal of the procedure. The cystoscope is inserted through the urethra, into the bladder. Cystoscopy may be recommended if you have: ? Urinary tract infections that keep coming back. ? Blood in the urine (hematuria). ? An inability to control when you urinate (urinary incontinence) or an overactive bladder. ? Unusual cells found in a urine sample. ? A blockage in the urethra, such as a urinary stone. ? Painful urination. ? An abnormality in the bladder found during an intravenous pyelogram (IVP) or CT scan. Cystoscopy may also be done to remove a sample of tissue to be examined under a microscope (biopsy). Tell a health care provider about: ? Any allergies you have. ? All medicines you are taking, including vitamins, herbs, eye drops, creams, and fvgo-lpk-iucbbql medicines. ? Any problems you or family members have had with anesthetic medicines. ? Any blood disorders you have. ? Any surgeries you have had. ? Any medical conditions you have. ? Whether you are or may be . What are the risks? Generally, this is a safe procedure. However, problems may occur, including: ? Infection. ? Bleeding. ? Allergic reactions to medicines. ? Damage to other structures or organs. What happens before the procedure? Medicines Ask your health care provider about: ? Changing or stopping your regular medicines. This is especially important if you are taking diabetes medicines or blood thinners. ? Taking medicines such as aspirin and ibuprofen. These medicines can thin your blood. Do not take these medicines unless your health care provider tells you to take them. ? Taking wnnf-jvd-nchofsm medicines, vitamins, herbs, and supplements. Tests You may have an exam or testing, such as: ? X-rays of the bladder, urethra, or kidneys. ? CT scan of the abdomen or pelvis. ? Urine tests to check for signs of infection. General instructions ? Follow instructions from your health care provider about eating or drinking restrictions. ? Ask your health care provider what steps will be taken to help prevent infection. These steps may include: ? Washing skin with a germ-killing soap. ? Taking antibiotic medicine. ? Plan to have a responsible adult take you home from the hospital or clinic. What happens during the procedure? ? You will be given one or more of the following: ? A medicine to help you relax (sedative). ? A medicine to numb the area (local anesthetic). ? The area around the opening of your urethra will be cleaned. ? The cystoscope will be passed through your urethra into your bladder. ? Germ-free (sterile) fluid will flow through the cystoscope to fill your bladder. The fluid will stretch your bladder so that your health care provider can clearly examine your bladder judd. ? Your doctor will look at the urethra and bladder. Your doctor may take a biopsy or remove stones. ? The cystoscope will be removed, and your bladder will be emptied. The procedure may vary among health care providers and hospitals. What can I expect after the procedure? After the procedure, it is common to have: ? Some soreness or pain in your abdomen and urethra. ? Urinary symptoms. These include: ? Mild pain or burning when you urinate. Pain should stop within a few minutes after you urinate. This may last for up to 1 week. ? A small amount of blood in your urine for several days. ? Feeling like you need to urinate but producing only a small amount of urine. Follow these instructions at home: Medicines ? Take vuxg-oqa-gmhnbom and prescription medicines only as told by your health care provider. ? If you were prescribed an antibiotic medicine, take it as told by your health care provider. Do not stop taking the antibiotic even if you start to feel better. General instructions ? Return to your normal activities as told by your health care provider. Ask your health care provider what activities are safe for you. ? If you were given a sedative during the procedure, it can affect you for several hours. Do not drive or operate machinery until your health care provider says that it is safe. ? Watch for any blood in your urine. If the amount of blood in your urine increases, call your health care provider. ? Follow instructions from your health care provider about eating or drinking restrictions. ? If a tissue sample was removed for testing (biopsy) during your procedure, it is up to you to get your test results. Ask your health care provider, (more content not included)... [facility] Evaluation + Plan note Note Date & Type Note Facility Evaluation + Plan note No data available for this section [facility] Evaluation note Note Date & Type Note Facility Evaluation note Diagnosis Pre-op examination Menorrhagia with regular cycle Abnormal uterine bleeding (AUB) Pelvic pain in female Unspecified symptom associated with female genital organs Labial pain Unspecified symptom associated with female genital organs Labia enlarged Hypertrophy of labia documented in this encounter [facility] Evaluation note Note Date & Type Note Facility Evaluation note Diagnosis Mixed stress and urge urinary incontinence- Primary Mixed incontinence urge and stress (male)(female) OAB (overactive bladder) documented in this encounter [facility] Instructions Note Date & Type Note Facility Instructions Not on filedocumented in this en counter [facility] Instructions Note Date & Type Note Facility Instructions Not on filedocumented in this en counter [facility] Progress note Note Date & Type Note Facility Progress note No data available for this section [facility] Summary Purpose Family History No Family History Records Found Advance Directives No Advanced Directives Records FoundNo Advanced Directives Records FoundNo Advanced Directives Records Found Additional Source Comments Patient Care team informatio n (unrecognized section and content) Finish Opener Relationship Specialty Start Date End Date Pippa Islas MD [address] [place] [address] PCP - General Family Medicine 07/22/22 INFORMATION SOURCE (unrecogn ized section and content) DATE CREATED AUTHOR 01/14/2024 [facility] DATE CREATED AUTHOR AUTHOR'S ORGANIZ ATION 02/12/2024 [facility] DATE CREATED AUTHOR AUTHOR'S ORGANIZ ATION 02/16/2024 [facility] Reason for Visit (unrecogniz ed section and content) Reason Comments Pre-op Visit Endometrial Biopsy Reason Comments Urinary Incontinence Specialty Diagnoses / Procedures Referred By Contac t Referred To Contact Urogynecology Diagnoses Urge incontinence Dyspareunia, female Urinary incontinence, unspecified type Susan Suh, DO [address] [place] [address] Phone: tel: fax: Caleb Hurtado MD [address] [place] [address] Phone: tel: fax: Referral ID Status Reason Start Date Expiration Date Visits Re quested Visits Authorized [id number] Closed 01/29/2024 01/28/2025 1 1 FOR RECORDS PERTAINING TO PATIENTS WHO ARE OR HAVE BEEN ENROLLED IN A CHEMICAL DEPENDENCY/SUBSTANCEABUSE PROGRAM, SOME INFORMATION MAY BE OMITTED. This clinical summary was aggregated from multiple sources. Caution should be exercised in using it in the provision of clinical care. This summary normalizes information from multiple sources, and as a consequence, information in this document may materially change the coding, format and clinical context of patient data. In addition, data may be omitted in some cases. CLINICAL DECISIONS SHOULD BE BASED ON THE PRIMARY CLINICAL RECORDS. [facility] provides no warranty or guarantee of the accuracy or completeness of information in this document.
--- NOTE | 2024-02-18 11:27 | XR_ITS ---
The [address] [address] Patient Name: AMANDA PINEDA MRN: [id number] date: 1990 Sex: F Assigned Patient Location: [facility] Current Patient Location: Accession/Order Number: [id number] Exam Date: 02/18/2024 11:30 Report Date: 02/19/2024 05:49 At the request of: SUSAN TREVIÑO Procedure: XR chest 2V EXAMINATION: XR chest 2V HISTORY: Preop exam COMPARISON: No relevant comparison available. FINDINGS: LUNGS: No significant pulmonary parenchymal abnormalities. VASCULATURE: No increased pulmonary vasculature. PLEURA: No pneumothorax, effusion, or pleural thickening. CARDIAC: No cardiomegaly or cardiac silhouette abnormality. MEDIASTINUM: No visible mass or adenopathy. BONES: No fracture or visible bone lesion. OTHER: Negative. XR/XR chest 2V IMPRESSION: 1. No acute cardiopulmonary process or suspicious findings. Electronically authenticated by: NIA SILVERIO Date: 02/19/2024 05:49
== END 2024-02-18 10:59 | disposition home or self-care (01) ==
LOC: PST 10:59
PROVIDERS: PCP Family Medicine; Visit Provider Obstetrics & Gynecology
DX: Z01.810 Encounter for preprocedural cardiovascular examination (principal); N92.0 Excessive and frequent menstruation with regular cycle; N93.9 Abnormal uterine and vaginal bleeding, unspecified; R10.2 Pelvic and perineal pain
CPT/HCPCS: 71046

== ENCOUNTER 2024-03-02 07:34 | Day surgery (SDC) | payer BC, SELFPAY ==
[2024-02-18 11:41] VITALS: BP 132/84; PULSE 82; TEMP 36.3; O2SAT 99; BMI 31.8
[2024-03-02] VITALS (20 sets, daily range): BP systolic 100–137; BP diastolic 56–92; PULSE 59–101; TEMP 36.1–36.4; O2SAT 94–100; BMI 31.8
[2024-03-02 07:43] LABS: Basophils Percent Auto 0.8 % (0.2-2.0); Eosinophils Absolute Auto 0.1 10^3/uL (0.0-0.7); Eosinophils Percent Auto 2.5 % (0.9-7.0); Hematocrit 41.6 % (36.0-48.0); Immature Granulocytes Abs Auto 0.01 10^3/uL (0.00-0.03); Immature Granulocytes Pct Auto 0.2 % (0.0-0.5); Lymphocytes Absolute Auto 1.7 10^3/uL (1.2-3.8); Lymphocytes Percent Auto 33.4 % (20.5-60.0); Mean Corpuscular HGB Conc 33.7 g/dL (29.9-35.2); Mean Corpuscular Hemoglobin 31.8 pg (26.7-34.0); Mean Corpuscular Volume 94.5 fL (81.0-99.0); Mean Platelet Volume 9.4 fL (9.5-13.5); Monocytes Absolute Auto 0.3 10^3/uL (0.3-0.8); Monocytes Percent Auto 6.2 % (1.7-12.0); Neutrophils Absolute Auto 2.9 10^3/uL (1.4-6.5); Neutrophils Percent Auto 56.9 % (43.0-75.0); Platelet Count 191 10^3/uL (150-450); Red Cell Distribution Width 11.7 % (11.0-15.0); White Blood Count 5.2 10^3/uL (4.0-11.0)
[2024-03-02] MEDS: LACTATED RINGER'S SOLUTION 1,000 ML 50 ML IV ×2 (08:22→10:18)
[2024-03-02 08:25] LABS: HCG Quantitative <1 mIU/mL
--- NOTE | 2024-03-02 09:42 | P.ON_ITS ---
Brief Operative Note Date of procedure: 03/02/24 Pre-op diagnosis general: menorrhagia, dysmenorrhea, desires permanent sterili zatin, multiparity, dyspareunia Post-op diagnosis: same as pre-op Procedure: NAME OF PROCEDURE: robotic assisted Laparoscopic bilateral salpingectomy, with Katherine endometrial ablation with hysteroscopy, bilateral labioplasty dt laceration during delivery PROCEDURE: The patient was taken back to the OR where she was prepped and draped in the normal sterile fashion after being placed in the dorsal lithotomy position, after being placed under general anesthesia without difficulty. a weighted speculum was then placed into the vagina. Pap and endometrial bx were performed without difficultyThe anterior lip was grasped with a single tooth tenaculum. The patient was then sounded to approximatley 9cm. The patient was gently sounded using Hegar dilators and the hysteroscope was passed through the cervix into the uterus where both ostia were seen. No gross evidence of polyps, fibroid s or malignancy. The cervical length was noted to be 4cm. The Katherine ablation apparatus was set to approximately 5cm in length. This was placed in through the cervix and into the uterus. After the seal was tested, at that time the total ablation of 120 seconds was performed with the Katherine without difficulty. All instruments were removed from the vagina. A wet sponge stick was placed into the patient's vagina. Attention was then turned to the patient's abdomen, where a scalpel was used to make a small infraumbilical incision. The S retractors were then used to dissect the underlying layers until the fascia could be seen. The fascia was then grasped with Loli clamps and tented up. A knife was then used to make a small incision to the fascia. The muscle was identified, at that time two sutures of #0 Vicryl on a GI needlewas then used and placed through the fascia. The peritoneum was then identified and entered bluntly. The 10-4 Astrid was then placed into the patient's abdomen. This was confirmed with direct visualization of the bowel, using the laparoscope. The patient's abdomen was then insufflated using approximately 4 liters of CO2 gas. Survey of the patient's abdomen demonstrated normal appearing ovaries, uterus and tubes. A second and third lateral robotic ports, which was 8mm in size, was then placed laterally after incision was made in the skin under direct visualization. the robotic arms were engaged. The patient's tube on the patient's right side was identified. The tube was then tented up using a grasper. The ligasure was used to transect and coagulate the mesosalpingx from the fimbriated end to the insertion at the uterus, the tube was amputated and removed in its entirety.? Excellent hemostasis was noted. ?This was performed on the contralateral sideas well. The lateral ports were then moved under direct visualization with excellent hemostasis. The abdomen was deinsufflated. All instruments were removed from the patient's abdomen. The fascia was closed using the #0 Vicryl on GI needle. The skin was closed using 4- 0 Vicryl subcuticularly. attention was turned to the rt labia were a defect was notified, the excess labial skin was marked and removed using a scalpel, hemostasis was performed with coag and the skin was closed with 4-0 vicryl interrupted, the same was performed on the contralateral side. All instruments were removed from the patient's vagina as well. The patient was taken out of the dorsal lithotomy position and placed in the supine position and taken to recovery in stable condition. Sponge, lap and needle counts were correct x2. ??? Anesthesia: BLKAE Surgeon: Jaskaran Suh Medical Staff Director: Dolores Sal Estimated blood loss (mL): 5 Pathology: other (excess labial skin and tubes) Condition: stable Disposition: PACU Urinary Catheter Management Urinary Catheter Management Urethral: Cath placed during this visit: no
[2024-03-02] MEDS: HYDROMORPHONE HCL 0.5 MG/0.5 ML SYRINGE IV ×2 (11:21→11:30)
[2024-03-02] MEDS: HYDROCODONE/ACET 5-325 MG TABLET 1 TAB PO (11:27)
[2024-03-02] MEDS: MORPHINE SULFATE 4 MG/ML VIAL 2 MG IV (11:44)
--- NOTE | 2024-03-02 12:57 | PC.NURSE ---
PATIENT HAD A LARGE EMESIS OF WATER
== END 2024-03-02 13:55 | disposition home or self-care (01) ==
PROVIDERS: PCP Family Medicine; Visit Provider Obstetrics & Gynecology
PROC: (CPT 840; principal; 2024-03-02 08:55)
PROC: (CPT 840; 2024-03-02 08:55)
DX: Z30.2 Encounter for sterilization (principal); N92.0 Excessive and frequent menstruation with regular cycle; N93.9 Abnormal uterine and vaginal bleeding, unspecified; R10.2 Pelvic and perineal pain; N83.8 Other noninflammatory disorders of ovary, fallopian tube and broad ligament; N90.69 Other specified hypertrophy of vulva; Z88.6 Allergy status to analgesic agent; Z91.040 Latex allergy status
CPT/HCPCS: 58661; 56620; 58563; 36415; 84702; 85025; J1100; J1171; J1885; J2250; J2270; J2405; J2704; J2710; J3010

== ENCOUNTER 2024-08-18 20:06 | Outpatient (REF) | payer BC, SELFPAY ==
--- OUTSIDE RECORDS SUMMARY | 2024-08-18 15:00 | XMS_ITS | Encounter Summary ---
Author Organization [facility] Address [address] [place] [address] Care Team Providers Care Seam Taper Machine Name Role Phone Pippa Bobby MD Primary Care Provider [phone] Reason for Visit * Reason Comments Well Women Visit Encounter Details Date Type Department Care Team (Late st Contact Info) Description 08/18/2024 3:00 PM EDT Office Visit [facility] [address] [place] [place] [id number] Janene Maria PA [address] [place], [place] [id number] Well woman exam with routine gynecological exam Social History Tobacco Use Types Packs/Day Years Used Date Smoking Tobacco: Never Smokeless Tobacco: Never Alcohol Use Standard Drinks/Week Comments Yes 0 (1 standard drink = 0.6 oz pur e alcohol) B1300 Health Literacy Answer Date Recor ded How often do you need to hav e someone help you when you read instructions, pamphlets, or other written material from your doctor or pharmacy? Never 09/08/2023 Social Connection and Isolat ion Panel [NHANES] Answer Date Recorded In a typical week, how many times do you talk on the phone with family, friends, or neighbors? More than three times a week 09/08/2023 How often do you get togethe r with friends or relatives? More than three times a week 09/08/2023 How often do you attend [facility] or hoahaoism services? Never 09/08/2023 Do you belong to any clubs o r organizations such as religion groups, unions, fraternal or athletic groups, or school groups? No 09/08/2023 How often do you attend meet ings of the clubs or organizations you belong to? Never 09/08/2023 Are you , , di vorced, , never , or living with a partner? 09/08/2023 AUDIT-C Answer Date Recorded Q1: How often do you have a drink containing alc ohol? Monthly or less 09/08/2023 Q2: How many drinks containi ng alcohol do you have on a typical day when you are drinking? 1 or 2 09/08/2023 Q3: How often do you have si x or more drinks on one occasion? Less than monthly 09/08/2023 Overall Financial Resource Strain (CARDIA) Answe r Date Recorded How hard is it for you to pa y for the very basics like food, housing, medical care, and heating? Somewhat hard 09/08/2023 [facility] - Occupational Stress Questionnaire Answer Date Recorded Do you feel stress - tense, restless, nervous, or anxious, or unable to sleep at night because your mind is troubled all the time - these days? Only a little 09/08/2023 Exercise Vital Sign Answer Date Recorde d On average, how many days pe r week do you engage in moderate to strenuous exercise (like a brisk walk)? 4 days 09/08/2023 On average, how many minutes do you engage in exercise at this level? 60 min 09/08/2023 Hunger Vital Sign Answer Date Recorded Within the past 12 months, y ou worried that your food would run out before you got the money to buy more. Never true 09/08/19 24 Within the past 12 months, t he food you bought just didn't last and you didn't have money to get more. Never true 09/08/2023 PRAPARE - Transportation Answer Date Re corded In the past 12 months, has l ack of transportation kept you from medical appointments or from getting medications? No 08/15 In the past 12 months, has l ack of transportation kept you from meetings, work, or from getting things needed for daily living? No 09/08/2023 Housing Stability Vital Sign Answer Rafael e Recorded In the last 12 months, was t here a time when you were not able to pay the mortgage or rent on time? No 09/08/2023 In the past 12 months, how m any times have you moved where you were living? 1 09/08/2023 At any time in the past [address] [facility], were you homeless or living in a long term (including now)? No 09/08/2023 Comments No Sex and Gender Information Value Date Recorded Sex Assigned at Female 09/07/2023 6:12 PM EDT Legal Sex Female 7:01 PM EDT Gender Identity Female 09/07/2023 6:12 PM EDT Sexual Orientation Straight 09/07/2023 6: 12 PM EDT documented as of this encounter Last Filed Vital Signs Vital Sign Reading Time Taken Comments Blood Pressure 114/72 08/18/2024 3:17 PM EDT Pulse - - Temperature - - Respiratory Rate - - Oxygen Saturation - - Inhaled Oxygen Concentration - - Weight 89.4 kg (197 lb) 08/18/2024 3:17 PM EDT Height - - Body Mass Index 32.53 09/09/2023 1:49 PM EDT documented in this encounter Progress Notes * ROSA Orourke - 08/18/2024 3:00 PM EDT Reason for Appointment: Patient ID: Flaca Arnold is a 34 y.o. female who presents for Well Women Visit Patient presents today for Annual Exam. MEDICATIONS Current Outpatient Medications Medication Instructions SEMAGLUTIDE,0.25 OR 0.5MG/DOS, SC Turmeric (QC TUMERIC COMPLEX PO) Take by mouth Vitamin C-Vitamin D-Zinc (D3/VITAMIN C/ZINC PO) Take by mouth ALLERGIES Allergies Allergen Reactions Milk (Cow) Diarrhea Other Diarrhea Latex Rash and Swelling Salicylates [...] HISTORY Past Surgical History: Procedure Laterality Date ENDOMETRIAL ABLATION 03/02/2024 SALPINGECTOMY Bilateral 03/02/2024 with Katherine TONSILLECTOMY TUBAL LIGATION Bilateral 03/02/2024 REVIEW OF SYSTEMS Review of Systems: Review of Systems Constitutional: Negative. HENT: Negative. Eyes: Negative. Respiratory: Negative. Cardiovascular: Negative. Gastrointestinal: Negative. Genitourinary: Negative. Musculoskeletal: Negative. Skin: Negative. Neurological: Negative. All other systems reviewed and are negative. Hematological: Negative. Endocrine: Negative. Allergic/Immunologic: Negative. OBJECTIVE Objective: Physical Exam Constitutional: Appearance: Normal appearance. She is well-developed. Genitourinary: Vulva normal. Right Adnexa: not tender and no mass present. Left Adnexa: not tender and no mass present. No cervical discharge. Breasts: Breasts are soft. Right: Normal. Left: Normal. HENT: Head: Normocephalic. Nose: Nose normal. Mouth/Throat: Mouth: Mucous membranes are moist. Cardiovascular: Rate and Rhythm: Normal rate and regular rhythm. Pulmonary: Effort: Pulmonary effort is normal. Breath sounds: Normal breath sounds. Abdominal: General: Bowel sounds are normal. There is no distension. Palpations: Abdomen is soft. Tenderness: There is no abdominal tenderness. There is no guarding or rebound. Musculoskeletal: General: No swelling. Normal range of motion. Cervical back: Normal range of motion. Right lower leg: No edema. Left lower leg: No edema. Neurological: General: No focal deficit present. Mental Status: She is alert and oriented to person, place, and time. Skin: General: Skin is warm and dry. Psychiatric: Mood and Affect: Mood normal. Behavior: Behavior normal. Vitals and nursing note reviewed. Exam conducted with a water resource project manager present. Vitals: Estimated body mass index is 32.53 kg/m?? as calculated from the following: Height as of 09/09/23: 5' 5.25 . Weight as of this encounter: 197 lb. BP: 114/72 No LMP recorded. Patient has had an ablation. ASSESSMENT & PLAN ICD-10-CM 1. Well woman exam with routine gynecological exam Z01.419 Pap Smear HPV DNA probe, amplified Annual Exam: Patient presents today for an annual exam. Patient states she is doing well and has no complaints. Pap was obtained without difficulty. Orders Placed This Encounter Procedures HPV DNA probe, amplified Patient doing well post ablation, minimal spotting Follow Up: Patient is to return in one year for annual unless needed otherwise. Documented by Thania Moulton LPN on behalf of: ROSA Orourke documented in this encounter Plan of Treatment Upcoming Encounters Date Type Department Care Team (Late st Contact Info) Description 09/12/2024 4:00 PM EDT Office Visit [facility] [address] [place] [address] Sujata Lange NP [address] [place] [address] Scheduled Orders Name Type Priority Associated Diagnoses Orde r Schedule Pap Smear Pathology and Cytology Routine Well woman exam with routine gynecological exam Ordered: 08/18/2024 HPV DNA probe, amplified Microbiology Routine Well woman exam with routine gynecological exam Ordered: 08/18/2024 documented as of this encounter Visit Diagnoses Diagnosis Well woman exam with routine gynecological exam Routine gynecological examination documented in this encounter Care Teams Seam Taper Machine Relationship Specialty Start Date End Date Pippa Bobby MD [address] [place], [place] [id number] PCP - General Family Medicine 07/22/22 documented as of this encounter
--- OUTSIDE RECORDS SUMMARY | 2024-08-18 20:09 | XMS_ITS | Encounter Summary ---
Author Organization [facility] Address [address] [place] [address] Care Team Providers Care Closed Circuit Screen Watcher Name Role Phone Daija Islas MD Primary Care Provider [phone] Encounter Details Date Type Department Care Team (Late st Contact Info) Description 02/19/2024 Clinisync Result Encounter [facility] External Department Unsolicited Provider, Generic External Data Social History Tobacco Use Types Packs/Day Years [...] week 09/08/2023 How often do you attend chur ch or confucianist services? Never 09/08/2023 Do you belong to any clubs o r organizations such as synagogue groups, unions, fraternal or athletic groups, or [...] medical care, and heating? Somewhat hard 09/08/2023 [facility] of Occupat ional Health - Occupational Stress [...] any time in the past [address] [facility], were you homeless or living in a nursing home (including now)? No 09/08/2023 Comments No Sex and Gender Information Value Date Recorded Sex Assigned at Female 09/07/2023 6:12 PM EDT Legal Sex Female 7:01 PM EDT Gender Identity Female 09/07/2023 6:12 PM EDT Sexual Orientation Straight 09/07/2023 6: 12 PM EDT documented as of this encounter Plan of Treatment Upcoming Encounters Date Type Department Care Team (Late st Contact Info) Description 09/12/2024 4:00 PM EDT Office Visit [facility] [address] [place] [address] Sujata Lange NP [address] [place] [address] documented as of this encounter Procedures Procedure Name Priority Date/Time Associated Diagnosis Comments XR CHEST 2V 02/19/2024 5:49 AM EST documented in this encounter Results * XR CHEST 2V (02/19/2024 5:49 AM EST) Anatomical Region Laterality Modality Other 02/19/2024 5:49 AM EST Narrative 02/19/2024 5:52 [place] [address] XRay Report Signed Patient: FLACA PINEDA MR#: [id number] : 1990 Acct:[id number] Age/Sex: 33 / F ADM Date: 02/18/24 Loc: PST Attending Dr: Susan Suh D.O. Ordering Physician: Susan Suh D.O. Date of Service: 02/18/24 Procedure(s): XR chest 2V Accession Number(s): [id number] cc: Susan Suh D.O.; DAIJA ISLAS [address] [address] Patient Name: FLACA PINEDA MRN: [id number] date: 1990 Sex: F Assigned Patient Location: SURGOUT Current Patient Location: Accession/Order Number: [id number] Exam Date: 02/18/2024 11:30 Report Date: 02/19/2024 05:49 At the request of: SUSAN SUH Procedure: XR chest 2V EXAMINATION: XR chest 2V HISTORY: Preop exam COMPARISON: No relevant comparison available. FINDINGS: LUNGS: No significant pulmonary parenchymal abnormalities. VASCULATURE: No increased pulmonary vasculature. PLEURA: No pneumothorax, effusion, or pleural thickening. CARDIAC: No cardiomegaly or cardiac silhouette abnormality. MEDIASTINUM: No visible mass or adenopathy. BONES: No fracture or visible bone lesion. OTHER: Negative. XR/XR chest 2V IMPRESSION: 1. No acute cardiopulmonary process or suspicious findings. Electronically authenticated by: GABRIEL CHILD Date: 02/19/2024 05:49 Dictated By: Gabriel Child M.D. Signed By: 02/19/2452 DD/ 0549 TD/TT: Community Mental Health Social Worker: Procedure Note Radiology, Radiologist, MD - 02/19/2024 [place] [address] XRay Report Signed Patient: ALEXANDER PINEDA#: [id number] : 1990Acct:[id number] Age/Sex: 33 / FADM Date: 02/18/24 Loc: [facility] Attending Dr: Susan Suh D.O. Ordering Physician: Susan Suh D.O. Date of Service: 02/18/24 Procedure(s): XR chest 2V Accession Number(s): [id number] cc: Susan Suh D.O.; DAIJA ISLAS [place] [id number] Patient Name: FLACA PINEDA MRN: [id number] date: 1990 Sex: F Assigned Patient Location: SURGOUT Current Patient Location: Accession/Order Number: [id number] Exam Date: 02/18/2024 11:30 Report Date: 02/19/2024 05:49 At the request of: SUSAN SUH Procedure: XR chest 2V EXAMINATION: XR chest 2V HISTORY: Preop exam COMPARISON: No relevant comparison available. FINDINGS: LUNGS: No significant pulmonary parenchymal abnormalities. VASCULATURE: No increased pulmonary vasculature. PLEURA: No pneumothorax, effusion, or pleural thickening. CARDIAC: No cardiomegaly or cardiac silhouette abnormality. MEDIASTINUM: No visible mass or adenopathy. BONES: No fracture or visible bone lesion. OTHER: Negative. XR/XR chest 2V IMPRESSION: 1. No acute cardiopulmonary process or suspicious findings. Electronically authenticated by: GABRIEL CHILD Date: 02/19/2024 05:49 Dictated By: Gabriel Child M.D. Signed By:02/19/24 0552 DD/ TD/TT: Community Mental Health Social Worker: Generic External Data Provider [facility] Final Result documented in this encounter Visit Diagnoses Not on filedocumented in this encounter Care Teams Closed Circuit Screen Watcher Relationship Specialty Start Date End Date Daija Islas MD [address] [place] [address] PCP - General Family Medicine 07/22/22 documented as of this encounter
--- OUTSIDE RECORDS SUMMARY | 2024-08-18 20:09 | XMS_ITS | Clinical Summary ---
Author [facility] Address [id number] [address] [place] [address] Care Team Providers Care Logistics Research Engineer Name Role Phone Unavailable Primary Care Provider Unavailabl e Allergies Active Allergy Reactions Criticality Noted Date Comments Latex Rash Low 02/15/2024 Milk Containing Products (Dairy) Diarrhea High 04/2023 Salicylates 02/15/2024 Medications turmeric 400 mg capsule Take by mouth. Active Active Problems Problem Noted Date Diagnosed Date Mixed stress and urge urinary incontinence 02/15 OAB (overactive bladder) 02/16/2024 Encounters Date Type Department Care Team Description 06/15/2024 3:00 PM EDT [facility] [address] [place] [address] Margarita Hurtado MD Mixed stress and urge urinary incontinence (Primary Dx) 06/15/2024 Travel from Last 3 Months Social History Tobacco Use Types Packs/Day Years Used Date Smoking Tobacco: Never Smokeless Tobacco: Never Tobacco Cessation:Counseling Given: Not Answered Alcohol Use Standard Drinks/Week Comments Yes 0 (1 standard drink = 0.6 oz pur e alcohol) Childcare Answer Date Recorded Childcare Unknown 08/25/2018 Employment Answer Date Recorded Employment Unknown 08/25/2018 Hunger Screening Answer Date Recorded Within the past 12 months we worried whether our food would run out before we got money to buy more. Never True 06/15/2024 Within the past 12 months th e food we bought just didn't last and we didn't have money to get more. Never True 06/15/2024 Comments No Sex and Gender Information Value Date Recorded Sex Assigned at Not on file Legal Sex Female 11:52 AM EDT Gender Identity Not on file Sexual Orientation Not on file Last Filed Vital Signs Vital Sign Reading Time Taken Comments Blood Pressure 125/77 02/15/2024 1:13 PM EST Pulse 91 02/15/2024 1:13 PM EST Temperature - - Respiratory Rate - - Oxygen Saturation - - Inhaled Oxygen Concentration - - Weight 89.4 kg (197 lb) 02/15/2024 1:13 PM EST Height 165.7 cm (5' 5.25 ) 02/15/2024 1:13 PM ES T Body Mass Index 32.53 02/15/2024 1:13 PM EST Plan of Treatment Health Maintenance Due Date Last Done Comments Depression Screening 2003 Adult BMI Follow Up Plan 06/26/2009 DTaP,Tdap and Td Vaccines (1 - Tdap) 06/26/2010 Pap Smear 06/26/2012 Influenza Vaccine 11/14/2024 Adult BMI Screening 02/14/2025 02/15/2024 Tobacco Screening 06/15/2025 06/15/2024 Medical Devices Not on file Insurance [facility]
--- OUTSIDE RECORDS SUMMARY | 2024-08-18 20:09 | XMS_ITS | Patient Health Record ---
Author Organization [facility] Address [address] [id number] Care Team Providers Care Loan Underwriter Name Role Phone Ash Sams Unavailable [phone] Allergies No Known Allergies Reason For Referral No Information Problems Problem Type SNOMED Code ICD Code Onset Dates Problem Status W/U Status Risk Notes Problem Irritable bowel syndrome with diarrhea (701083481) Irritable bowel syndrome with diarrhea (K58.0) Active confirmed Problem Gastric reflux (781185029) Gastric reflux (K21.9) Active confirmed Plan Of Treatment No Information Insurance Providers Payer Name Payer Address Payer Phone Subscriber Number Group Number Insured Name Patient Relationship to Insured Coverage Start Date Coverage End Date [facility] [address] [address] [place] [address] [id number] Flaca Arnold Self - patient is the insured 2 Medical (General) History Medical History History ICD Code weight gain fatigue diarrhea headaches anxiety Surgical History Surgery Date(Month/Year) tonsilectomy 97
--- OUTSIDE RECORDS SUMMARY | 2024-08-18 20:09 | XMS_ITS | Encounter Summary ---
Author Organization [facility] Address [address] [place] [address] Care Team Providers Care Warehouse Freight Handler Name Role Phone Pippa Bobby MD Primary Care Provider [phone] Encounter Details Date Type Department Care Team (Late st Contact Info) Description 12/22/2023 Abstract [facility] [address] [place] [address] Thania Moulton LPN [address] [place] [address] Social History Tobacco Use Types Packs/Day Years [...] often do you attend chur ch or pentecostalism services? Never 09/08/2023 Do you belong to any clubs o r organizations such as judaism groups, unions, fraternal or athletic groups, or [...] medical care, and heating? Somewhat hard 09/08/2023 [facility] [place] of Occupat ional Health - Occupational Stress [...] any time in the past 12 m [facility], were you homeless or living in a penitentiary (including now)? No 09/08/2023 Comments No Sex [...] 09/12/2024 4:00 PM EDT Office Visit [facility] [address] [place] [address] Sujata Lange NP [address] [place] [address] documented as of this encounter Visit Diagnoses Not on filedocumented in this encounter Care Teams Warehouse Freight Handler Relationship Specialty Start Date End Date Pippa Bobby MD [address] [place], [place] [id number] PCP - General Family Medicine 07/22/22 documented as of this encounter
--- OUTSIDE RECORDS SUMMARY | 2024-08-18 20:09 | XMS_ITS | Encounter Summary ---
Author Organization [facility] Address [id number] [address] [place] [address] Care Team Providers Care Property Handler Name Role Phone Unavailable Primary Care Provider Unavailabl e Reason for Visit * Reason Comments Med Change Request Encounter Details Date Type Department Care Team (Late st Contact Info) Description 02/17/2024 Refill [facility] Pel[facility] - Urogynecology [address] [place] [address] Margarita Hurtado MD [address] [place] [address] Social History Tobacco Use Types Packs/Day Years [...] got money to buy more. Never True 02/15/2024 Within the past 12 months th e food we bought just didn't last and we didn't have money to get more. Never True 02/15/2024 Comments No Sex and Gender Information Value Date Recorded Sex Assigned at Not on file Legal Sex Female 11:52 AM EDT Gender Identity Not on file Sexual Orientation Not on file documented as of this encounter Plan of Treatment Not on file documented as of this encounter Visit Diagnoses Not on filedocumented in this encounter
--- OUTSIDE RECORDS SUMMARY | 2024-08-18 20:09 | XMS_ITS | Encounter Summary ---
Author Organization [facility] Address [address] [place] [address] Care Team Providers Care Plater Barrel Name Role Phone Pippa Bobby MD Primary Care Provider [phone] Encounter Details Date Type Department Care Team (Late st Contact Info) Description 03/02/2024 Abstract [facility] OB [address] [place] [address] Jaskaran Suh, DO [address] Audra Beck, [facility] Social History Tobacco Use Types Packs/Day Years [...] often do you attend chur ch or rastafari services? Never 09/08/2023 Do you belong to any clubs o r organizations such as jainism groups, unions, fraternal or athletic groups, or [...] medical care, and heating? Somewhat hard 09/08/2023 [facility] [place] of Occupat ional Health - Occupational Stress [...] any time in the past 12 m [facility], were you homeless or living in a prison (including now)? No 09/08/2023 Comments No Sex [...] 09/12/2024 4:00 PM EDT Office Visit [facility] [address] [place] [address] Sujata Lange NP [address] [place], [place] [address] documented as of this encounter Visit Diagnoses Not on filedocumented in this encounter Care Teams Plater Barrel Relationship Specialty Start Date End Date Pippa Bobby MD [address] [place], [place] [phone] PCP - General Family Medicine 07/22/22 documented as of this encounter
--- OUTSIDE RECORDS SUMMARY | 2024-08-18 20:09 | XMS_ITS | Encounter Summary ---
Author Organization [facility] Address [address] [place] [address] Care Team Providers Care Lab Tech Name Role Phone Daija Islas MD Primary Care Provider [phone] Encounter Details Date Type Department Care Team (Late st Contact Info) Description 12/01/2023 Clinisync Result Encounter [facility] External Department Unsolicited [...] any clubs o r organizations such as sabianist groups, unions, fraternal or athletic groups, or [...] medical care, and heating? Somewhat hard 09/08/2023 [facility] [place] of Occupat ional Health - Occupational Stress [...] were you homeless or living in a senior living (including now)? No 09/08/2023 Comments No Sex [...] EDT Office Visit [facility] [address] [place] [address] Sujata Lange NP [address] [place], [place] [address] documented as of this encounter Procedures Procedure Name Priority Date/Time Associated Diagnosis Comments US PELVIS W/ TRANSVAGINAL 12/01/2023 7:50 AM EDT documented in this encounter Results * US PELVIS W/ TRANSVAGINAL (12/01/2023 7:50 AM EDT) Anatomical Region Laterality Modality Other 12/01/2023 7:50 AM EDT Narrative 12/01/2023 7:52 [place] [address] Ultrasound Report Signed Patient: FLACA PINEDA MR#: [id number] : 1990 Acct:[id number] Age/Sex: 33 / F ADM Date: 11/30/23 Loc: [facility] Attending Dr: Susan Suh D.O. Ordering Physician: Susan Suh D.O. Date of Service: 11/30/23 Procedure(s): US pelvis w/ transvaginal Accession Number(s): [id number] cc: Susan Suh D.O.; DAIJA ISLAS [address] [address] Patient Name: FLACA PINEDA MRN: [facility]:[id number] date: 1990 Sex: F Assigned Patient Location: [facility] Current Patient Location: Accession/Order Number: [id number] Exam Date: 11/30/2023 10:30 Report Date: 12/01/2023 07:50 At the request of: SUSAN SUH Procedure: US pelvis w/ transvaginal EXAMINATION: US pelvis w/ transvaginal HISTORY: DYSPAREUNIA MENORRHAGIA COMPARISON: No relevant comparison available. FINDINGS: PICC line transabdominal and transvaginal images The uterus is normal in size, contour and echotexture measuring 9.4 x 4.8 x 6.7 cm. The uterus is anteverted and anteflexed. No focal myometrial mass. The endometrium measures 1.5 cm, correlate with the menstrual cycle The right ovary is normal showing 2.8 x 2.1 x 2.6 cm. Normal color and Doppler flow. Normal subcentimeter follicles. The left ovary is normal measuring 2.8 x 2.1 x 3.0 cm. Normal color and Doppler flow. Normal subcentimeter follicles. US/US pelvis w/ transvaginal IMPRESSION: Endometrial stripe measures 1.5 cm, correlate with the menstrual cycle Electronically authenticated by: NATALIE SUERO Date: 12/01/2023 07:50 Dictated By: Natalie Suero M.D. Signed By: 12/01/23 0752 DD/ 0750 TD/TT: Chemist: Procedure Note Radiology, Radiologist, MD - 12/01/2023 [place] [address] Ultrasound Report Signed Patient: ALEXANDER PINEDA#: [id number] : 1990Acct:[id number] Age/Sex: 33 / FADM Date: 11/30/23 Loc: [facility] Attending Dr: Susan Suh D.O. Ordering Physician: Susan Suh D.O. Date of Service: 11/30/23 Procedure(s): US pelvis w/ transvaginal Accession Number(s): [id number] cc: Susan Suh D.O.; DAIJA ISLAS [address] [address] Patient Name: FLACA PINEDA MRN: [id number] date: 1990 Sex: F Assigned Patient Location: [facility] Current Patient Location: Accession/Order Number: [id number] Exam Date: 11/30/2023 10:30 Report Date: 12/01/2023 07:50 At the request of: SUSAN SUH Procedure: US pelvis w/ transvaginal EXAMINATION: US pelvis w/ transvaginal HISTORY: DYSPAREUNIA MENORRHAGIA COMPARISON: No relevant comparison available. FINDINGS: PICC line transabdominal and transvaginal images The uterus is normal in size, contour and echotexture measuring 9.4 x 4.8x 6.7 cm. The uterus is anteverted and anteflexed. No focal myometrial mass. The endometrium measures 1.5 cm, correlate with the menstrual cycle The right ovary is normal showing 2.8 x 2.1 x 2.6 cm. Normal color andDoppler flow. Normal subcentimeter follicles. The left ovary is normal measuring 2.8 x 2.1 x 3.0 cm. Normal color and Doppler flow. Normal subcentimeter follicles. US/US pelvis w/ transvaginal IMPRESSION: Endometrial stripe measures 1.5 cm, correlate with the menstrual cycle Electronically authenticated by: NATALIE SUERO Date: 12/01/2023 07:50 Dictated By: Natalie Suero M.D. Signed By:12/01/23 0752 DD/ 0750 TD/TT: Chemist: us Generic External Data Provider [facility] Final Result documented in this encounter Visit Diagnoses Not on filedocumented in this encounter Care Teams Lab Tech Relationship Specialty Start Date End Date Daija Islas MD [address] [place] [address] PCP - General Family Medicine 07/22/22 documented as of this encounter
--- OUTSIDE RECORDS SUMMARY | 2024-08-18 20:09 | XMS_ITS | Encounter Summary ---
Author Organization [facility] [facility] Address [id number] [address] [place] [address] Care Team Providers Care Sports Medicine Physician Name Role Phone Unavailable Primary Care Provider Unavailabl e Reason for Visit * Reason Comments Med Change Request Encounter Details Date Type Department Care Team (Late st Contact Info) Description 02/24/2024 Refill [facility] Pel[facility] Health - Urogynecology [address] [place] [address] Margarita Hurtado MD [address] [place] [address] Social History Tobacco Use Types Packs/Day Years [...]
--- OUTSIDE RECORDS SUMMARY | 2024-08-18 20:09 | XMS_ITS | Clinical Summary ---
Author Organization [facility] Address [address] [place] [address] Care Team Providers Care Graves Registration Specialist Name Role Phone Pippa Bobby MD Primary Care Provider [phone] Allergies Active Allergy Reactions Criticality Noted Date Comments Latex Rash,Swelling Medium 11/18/2023 Milk (Cow) Diarrhea High 02/15/2024 Other Diarrhea High 11/18/2023 Salicylates Other 11/18/2023 Medications Turmeric (QC TUMERIC COMPLEX PO) Take by mouth Active Vitamin C-Vitamin D-Zinc (D3/VITAMIN C/ZINC PO) Take by mouth Active SEMAGLUTIDE,0.25 OR 0.5MG/DOS, SC 07/31/2024 Ac tive Active Problems No known active problems Encounters Date Type Department Care Team Description 08/18/2024 3:00 PM EDT Office Visit [facility] [address] [place] [address] Janene Maria PA Well woman exam with routine gynecological exam 08/18/2024 Bamboo flowsheet [facility] [address] [place] [address] Janene Maria PA 08/14/2024 Travel 06/29/2024 Travel 06/24/2024 Travel 06/22/2024 Telephone [facility] [address] [place] [address] Pippa Bobby MD from Last 3 Months Family History Relation Name Status Comments Father Alive Mother Alive Social History Tobacco Use Types Packs/Day Years [...] often do you attend chur ch or anglican services? Never 09/08/2023 Do you belong to [...] medical care, and heating? Somewhat hard 09/08/2023 [facility] [place] of Occupat ional Health - Occupational Stress [...] money to buy more. Never true 09/08/19 Within the past 12 months, t he [...] any time in the past 12 m [facility], were you homeless or living in a group home (including now)? No 09/08/2023 Comments No Sex and Gender Information Value Date Recorded Sex Assigned at Female 09/07/2023 6:12 PM EDT Legal Sex Female 7:01 PM EDT Gender Identity Female 09/07/2023 6:12 PM EDT Sexual Orientation Straight 09/07/2023 6: 12 PM EDT Last Filed Vital Signs Vital Sign Reading Time Taken Comments Blood Pressure 114/72 08/18/2024 3:17 PM EDT Pulse 80 09/09/2023 1:49 PM EDT Temperature - - Respiratory Rate - - Oxygen Saturation 98% 09/09/2023 1:49 PM EDT Inhaled Oxygen Concentration - - Weight 89.4 kg (197 lb) 08/18/2024 3:17 PM EDT Height 165.7 cm (5' 5.25 ) 09/09/2023 1:49 PM ED T Body Mass Index 32.53 09/09/2023 1:49 PM EDT Plan of Treatment Upcoming Encounters Date Type Department Care Team (Late st Contact Info) Description 09/12/2024 4:00 PM EDT Office Visit [facility] [address] [facility] [place] [address] Sujata Lange NP [address] [facility] [place], [place] [address] Health Maintenance Due Date Last Done Comments Pap Smear 06/26/2012 Cervical Cancer Screening 06/26/2021 HPV/Cotest 06/26/2021 Influenza Vaccine (Season Ended) 2024 Insurance BCBS Care Teams Graves Registration Specialist Relationship Specialty Start Date End Date Pippa Bobby MD [address] [facility] [place], [place] [phone] PCP - General Family Medicine 07/22/22
--- OUTSIDE RECORDS SUMMARY | 2024-08-18 20:10 | XMS_ITS | Patient Health Record ---
Author Organization [facility] Address [address] [place] [address] Care Team Providers Care Safety Teacher Name Role Phone MICHELLE SUERO [phone] Allergies No Known Allergies Reason For Referral No Information Medications Medication SIG (Take, Route, Fr equency, Duration) Notes Start Date End Date Status Cephalexin 250 MG 1 capsule Orally ferny ry 6 hrs for 7 day(s) Active valACYclovir HCl 1 GM 1 tablet Orally 2 po now, repeat in 12 hours for 1 day(s) Active Amoxicillin Active Plan Of Treatment No Information Insurance Providers Payer Name Payer Address Payer Phone Subscriber Number Group Number Insured Name Patient Relationship to Insured Coverage Start Date Coverage End Date COUNT INCLUDES THE [facility] [address] [place] [address] [id number] Flaca Arnold Self - patient is the insured Medical (General) History Medical History History ICD Code IBS thyroid problems headaches back problems Surgical History Surgery Date(Month/Year) tonsillectomy
--- OUTSIDE RECORDS SUMMARY | 2024-08-18 20:10 | XMS_ITS | CCD ---
Author Organization [facility] Care Team Providers Care Kettle Loader Name Role Phone PIPPA ISLAS Primary Care Physician Amor SUAREZ Attending Unavailable Amor SUAREZ Attending Unavailable Pippa Islas MD Primary Care Provider CALEB HURTADO Attending Unavailable SUSAN SUH Referring Unavailable JANENE MYERS Attending Unavailable MASHA LANGE Attending Unavailable SHEILA SAMUEL Attending Unavailable SUSAN SUH Attending Unavailable SHEILA SAMUEL Referring Unavailable SUSAN SUH Attending Unavailable JANENE MYERS Attending Unavailable Unavailable Primary Care Provider Unavailabl e Unavailable Primary Care Provider Unavailabl e CALEB HURTADO Attending Unavailable Allergies Allergy Classification Reported Allergen(s) Allergy Type Date of Onset Reaction(s) Facility (18 sources) Latex; Translations: [Latex] Propensity to adverse reactions to substance 4 Swelling (finding), Eruption of skin (disorder), Rash, Swelling [facility] (12 sources) Salicylic Acid; Translations: [SALICYLATES] Drug Allergy 4 Other [facility] (10 sources) Other Allergy to substance 4 Diarrhea [facility] (5 sources) MILK CONTAINING PRODUCTS (DAIRY); Translations: [MILK CONTAINING PRODUCTS (DAIRY)] Propensity to adverse reactions to food (disorder) 4 Diarrhea [facility] (4 sources) Salicylic Acid Drug Allergy 4 [facility] Medications Current Medications Medication Drug Class(es) Dates Sig (Normalized) Sig (Original) cephalexin 500 mg oral capsule (4 sources) Cephalosporin Antibacterial Start: 03-07-2024 End: 03-14-2024 take 1 capsule by mouth in the morning, then take 1 capsule by mouth in the evening, then take 1 capsule by mouth at bedtime cephalexin (Keflex) 500 MG capsule Indications: Urinary incontinence, unspecified type Take 1 capsule (500 mg) by mouth in the morning and 1 capsule (500 mg) in the evening and 1 capsule (500 mg) before bedtime. Do all this for 7 days. 21 capsule 03/07/2024 03/14/2024 Active Start: 12-21-2023 End: 12-23-2023 take 1 tablet by mouth once daily Keflex 500 mg Cap 500 mg = 1 cap(s), Oral, Daily, Take one tab one day prior to the procedure and then one tab after the procedure, X 2 day(s), # 2 cap(s), Refills(s) 0, Pharmacy: [id number], 168, cm, 12/21/23 9:28:00 EDT, Height/Length Dosing, 82, kg, 12/21/23 9:28:00 EDT, Weight Dosing Start Date: 12/21/23 Stop Date: 12/23/23 Status: Ordered 24 hr mirabegron 25 mg extended release oral tablet (1 source) beta3-Adrenergic Agonist Start: 12-21-2023 take 1 tablet by mouth once daily Myrbetriq 25 mg oral tablet, extended release 25 mg = 1 tab(s), Oral, Daily, # 30 tab(s), Refills(s) 11, Pharmacy: [id number], 168, cm, 12/21/23 9:28:00 EDT, Height/Length Dosing, 82, kg, 12/21/23 9:28:00 EDT, Weight Dosing Start Date: 12/21/23 Status: Ordered mupirocin 0.02 mg/mg topical ointment (3 sources) RNA Synthetase Inhibitor Antibacterial Start: 03-07-2024 End: 03-17-2024 mupirocin (Bactroban) 2 % ointment Indications: Urinary incontinence, unspecified type Apply topically 3 (three) times a day for 10 days 30 g 03/07/2024 03/17/2024 Active tumeric, vitamin D, vitamin C, zinc powder (1 source) Start: 12-21-2023 tumeric, vitamin D, vitamin C, zinc powder tumeric, vitamin D, vitamin C, zinc powder, Oral, Daily Start Date: 12/21/23 Status: Ordered Turmeric extract (14 sources) turmeric 400 mg capsule Take by mouth. Active Turmeric (QC PAULETTE CHRISTIANO COMPLEX PO) Take by mouth Active Vitamin C-Vitamin D-Zinc (D3 /VITAMIN C/ZINC PO) (11 sources) Vitamin C-Vitami n D-Zinc (D3/VITAMIN C/ZINC PO) Take by mouth Active Completed/Discontinued Medications Medication Drug Class(es) Dates Sig (Normalized) Sig (Original) 24 hr oxybutynin chloride 10 mg extended release oral tablet (2 sources) Cholinergic Muscarinic Antagonist Start: 02-18-2024 End: 08-16-2024 take 1 tablet by mouth every twenty-four hours in the morning oxybutynin XL (DITROPAN-XL) 10 mg 24 hr tablet Take 1 tablet (10 mg total) by mouth in the morning for 180 days. 90 tablet 1 02/18/2024 06/15/2024 Discontinued vibegron (GEMTESA) 75 mg tablet (3 sources) Start: 02-16-2024 End: 06-15-2024 take 1 tablet by mouth in the morning vibegron (GEMTESA) 75 mg tablet Take 75 mg by mouth in the morning. 30 tablet 5 02/16/2024 06/15/2024 Discontinued Start: 02-16-2024 take 1 tablet by mayela th in the morning vibegron (GEMTESA) 75 mg tablet Take 75 mg by mouth in the morning. 30 tablet 5 02/16/2024 Active Problems Active Problems Problem Classification Problem Date Documented Date Episodic/Chronic Abdominal pain (1 source) Pain in female pelvis; Translations: [Pelvic and perineal pain] 02-09-2024 Episodic Attention-deficit, conduct, and disruptive behavior disorders (1 source) Attention deficit hyperactivity disorder 12-17-2023 Chronic Esophageal disorders (1 source) Gastroesophageal reflux disease 12-17-2023 Chronic Essential hypertension (1 source) Hypertensive disorder 12-21-2023 Chronic Genitourinary symptoms and ill-defined conditions (15 sources) Mixed incontinence; Translations: [Incontinence] Onset: 12-21-2023 Chronic Headache; including migraine (1 source) Headache 12-21-2023 Episodic Menstrual disorders (2 sources) Menorrhagia; Translations: [Excessive and frequent menstruation with regular cycle] 02-09-2024 Chronic Mood disorders (1 source) Depressive disorder 12-17-2023 Chronic Other aftercare (2 sources) Postoperative visit; Translations: [Encounter for other specified surgical aftercare] 03-14-2024 Episodic Other aftercare (2 sources) Surgical follow-up; Translations: [Encounter for follow-up examination after completed treatment for conditions other than malignant neoplasm] 04-11-2024 Episodic Other diseases of bladder and urethra (4 sources) Overactive bladder; Translations: [Overactive bladder] Onset: 02-16-2024 02-16-2024 Chronic Other female genital disorders (1 source) Abnormal uterine bleeding; Translations: [Abnormal uterine and vaginal bleeding, unspecified] 02-09-2024 Chronic Other female genital disorders (1 source) Unspecified dyspareunia; Translations: [Unspecified dyspareunia] Onset: 02-15-2024 Chronic Other female genital disorders (2 sources) Pain in female genitalia on intercourse; Translations: [Unspecified dyspareunia] 11-18-2023 Chronic Other female genital disorders (2 sources) Disorder of vulva; Translations: [Other specified conditions associated with female genital organs and menstrual cycle] 02-09-2024 Episodic Other female genital disorders (1 source) Hypertrophy of labia; Translations: [Unspecified hypertrophy of vulva] 02-09-2024 Episodic Residual codes; unclassified (2 sources) History of endometrial ablation; Translations: [Other specified postprocedural states] 03-14-2024 Episodic Unclassified (1 source) Med Management Onset: 06-15-2024 Past or Other Problems Problem Classification Problem Date Documented Da te Episodic/Chronic Other diseases of bladder and urethra (1 source) Urethritis; Translations: [Other specified disorders of urethra] 11-18-2023 Episodic Results Test Name Value Interpretation Reference Range Facility ALL CBC WITH AUTO DIFFon BASOPHILS ABSOLUTE AUTO 0 [facility] Basophils/100 WBC (Bld) 0.8 % 0.2 - 2.0 % [facility] Eosinophils/100 WBC (Bld) 2.5 % 0.9 - 7.0 % [facility] Erythrocyte distribution width (RBC) [Ratio] 11.7 % 11.0 - 15.0 % [facility] Hematocrit (Bld) [Volume fraction] 41.6 % 36.0 - 48.0 % [facility] Healthcar e Hemoglobin (Bld) [Mass/Vol] 14 g/dL 12.0 - 16.0 g/dL [facility] IMMATURE GRANULOCYTES ABS AUTO 0.01 [facility] Immature granulocytes/100 WBC (Bld) 0.2 % 0.0 - 0.5 % [facility] Interpretation and review of laboratory results Abnormal [facility] LYMPHOCYTES ABSOLUTE AUTO 1.7 [facility] Lymphocytes/100 WBC (Bld) 33.4 % 20.5 - 60.0 % [facility] MCH (RBC) [Entitic mass] 31.8 pg 26.7 - 34.0 pg [facility] MCHC (RBC) [Mass/Vol] 33.7 g/dL 29.9 - 35.2 g/dL [facility] MCV (RBC) [Entitic vol] 94.5 fL 81.0 - 99.0 fL [facility] MONOCYTES ABSOLUTE AUTO 0.3 [facility] Monocytes/100 WBC (Bld) 6.2 % 1.7 - 12.0 % [facility] NEUTROPHILS ABSOLUTE AUTO 2.9 [facility] Neutrophils/100 WBC (Bld) 56.9 % 43.0 - 75.0 % [facility] Platelet mean volume (Bld) [Entitic vol] 9.4 fL Low 9.5 - 13.5 [facility]L [facility].1 [facility] e TB PLT 191 [facility] Health[facility] e [facility] RBC 4.4 [facility] TB WBC 5.2 [facility] Measure post void residualon 02-15-2024 Volume 69 CC [facility] POCT urinalysis dipstick onl yon 02-15-2024 External Poct Urine Blood Negative [facility] External Poct Urine Glucose Negative [facility] External Poct Urine Ketones Negative [facility] External Poct Urine Leukocyte Esterase Negative [facility] External Poct Urine Nitrite Negative [facility] External Poct Urine Ph 5 [facility] External Poct Urine Protein Negative [facility] HCG ( test) Ql (U)o n 02-09-2024 Interpretation and review of laboratory results Normal [facility] Preg Test, Ur Negative Negative [facility] e Ambulatory Visit Summaryon 1 Ambulatory Visit [...] Following Appointments Follow Up with MILES MOHR, Amor Jacobs, ISAAC When: Comments: sched cysto w/ pelvic exam Where: [facility] [address] , [facility] [place] [address] [phone] Medications What How Much When Instructions Unchanged [...] including vitamins, herbs, eye drops, creams, and hhcg-ail-kgrobdc medicines. ? Any problems you or family [...] tells you to take them. ? Taking efgg-omk-gecvemb medicines, vitamins, herbs, and supplements. Tests You [...] doctor may (more content not included)... Normal [facility] Urology Office/Clinic Noteon 12-21-2023 Urology [...] Amor Jacobs, URL [facility] [address] [place] [address] [phone] Additional Instructions: sched cysto w/ pelvic exam [...] Rash) Family (more content not included)... Normal [facility] Comment on above: Result Comment: Elec tronically Signed By: MILES MOHR, Amor Jacobs\.br\Date and Time Signed: 12/21/23 10:15 EDT\.br\Electronically Co-Signed By: Liz Daugherty\.br\Date and Time Co-Signed: 12/21/23 10:08 EDT\.br\Electronically Co-Signed By: Liz Daugherty\.br\Date and Time Co-Signed: 12/21/23 10:12 EDT Vital Signs Date Time Vital Sign Value Performing Clinician Facility 04-11-2024 15:38-0500 Body mass index (BMI) [Ratio] 32.39 kg/m2 Janene Myers PA Work Phone: [facility] 04-11-2024 15:38-0500 Body weight 88.96 kg Janene Sagle PA Work Phone: [facility] 04-11-2024 15:38-0500 Diastolic blood pressure 70 mm[Hg] Janene Sagle PA Work Phone: [facility] 04-11-2024 15:38-0500 Systolic blood pressure 120 mm[Hg] Janene Sagle PA Work Phone: [facility] 03-14-2024 15:01-0500 Body mass index (BMI) [Ratio] 32.37 kg/m2 Janene Sagle PA Work Phone: [facility] 03-14-2024 15:01-0500 Body weight 88.91 kg Janene Louis PA Work Phone: [facility] 03-14-2024 15:01-0500 Diastolic blood pressure 72 mm[Hg] Janene LEE Work Phone: [facility] 03-14-2024 15:01-0500 Systolic blood pressure 118 mm[Hg] Janene LEE Work Phone: [facility] 02-15-2024 13:13-0500 Body height 165.7 cm Caleb Hurtado MD Work Phone: [facility] 02-15-2024 13:13-0500 Body mass index (BMI) [Ratio] 32.53 kg/m2 Caleb Hurtado MD Work Phone: [facility] 02-15-2024 13:13-0500 Body weight 89.36 kg Caleb Hurtado MD Work Phone: [facility] 02-15-2024 13:13-0500 Diastolic blood pressure 77 mm[Hg] Caleb Hurtado MD Work Phone: [facility] 02-15-2024 13:13-0500 Heart rate 91 /min Caleb Hurtado MD Work Phone: [facility] 02-15-2024 13:13-0500 Systolic blood pressure 125 mm[Hg] Caleb Hurtado MD Work Phone: [facility] 02-09-2024 13:38-0500 Body mass index (BMI) [Ratio] 31.71 kg/m2 Susan Angeli DO Work Phone: [facility] 02-09-2024 13:38-0500 Body weight 87.09 kg Susan Angeli DO Work Phone: [facility] 02-09-2024 13:38-0500 Diastolic blood pressure 70 mm[Hg] Susan Angeli DO Work Phone: [facility] 02-09-2024 13:38-0500 Systolic blood pressure 110 mm[Hg] Susan Angeli DO Work Phone: [facility] 12-21-2023 09:21-0400 Blood Pressure Location Amor SUAREZ [facility] 12-21-2023 09:21-0400 Diastolic blood pressure 94 mm[Hg] Amor SUAREZ [facility] 12-21-2023 09:21-0400 Heart rate 88 /min Amor SUAREZ [facility] 12-21-2023 09:21-0400 Respiratory rate 16 /min Amor SUAREZ [facility] 12-21-2023 09:21-0400 Systolic blood pressure 148 mm[Hg] Amor SUAREZ [facility] 11-18-2023 14:31-0400 Body mass index (BMI) [Ratio] 30.55 kg/m2 Susan Angeli DO Work Phone: [facility] 11-18-2023 14:31-0400 Body weight 83.92 kg Susan Angeli DO Work Phone: [facility] 11-18-2023 14:31-0400 Diastolic blood pressure 70 mm[Hg] Susan Angeli DO Work Phone: [facility] 11-18-2023 14:31-0400 Systolic blood pressure 114 mm[Hg] Susan Angeli DO Work Phone: [facility] Encounters Encounter Date Encounter Type Care Provider Facility Start: 06-22-2024 End: 06-22-2024 Telephone encounter Pippa Islas MD Work Phone: [facility] Start: 06-15-2024 End: 06-15-2024 Office outpatient visit 15 minutes Caleb Hurtado MD Work Phone: [facility] Comment on above: Mixed stress and urg e urinary incontinence (Primary Dx) Start: 06-15-2024 End: 06-15-[address] [facility] Start: 04-11-2024 End: 04-11-2024 Postop follow up visit related to original px Janene Louis PA Work Phone: [facility] Comment on above: Postoperative examin ation Start: 04-11-2024 End: 04-11-2024 ambulatory JANENE LOUIS Not Available Start: 04-11-2024 End: 04-11-2024 Bamboo flowsheet Janene Sagle PA Work Phone: [facility] Start: 04-11-2024 End: 04-11-2024 Bamboo flowsheet Janene Louis PA Work Phone: [facility] Start: 03-14-2024 End: 03-14-2024 Postop follow up visit related to original px Janene Louis PA Work Phone: [facility] Comment on above: Postoperative visit; S/P endometrial ablation; S/P tubal ligation Start: 03-14-2024 End: 03-14-2024 ambulatory JANENE LOUIS Not Available Start: 03-14-2024 End: 03-14-2024 Bamboo flowsheet Janene Louis PA Work Phone: [facility] Start: 03-14-2024 End: 03-14-2024 Bamboo flowsheet Janene Sagle PA Work Phone: [facility] Start: 03-02-2024 End: 03-02-2024 [facility] Result Encounter Generic External Data Provider [facility] Unsolicited Start: 03-02-2024 End: 03-02-2024 [facility] Result Encounter Generic External Data Provider [facility] Unsolicited Start: 02-18-2024 End: 02-18-2024 Orders Only Pippa Valdovinos CMA [facility] Start: 02-15-2024 End: 02-15-2024 Chart abstracting Caleb Hurtado MD Work Phone: [facility] Start: 02-15-2024 End: 02-15-2024 ambulatory CALEB HURTADO [facility] Start: 02-15-2024 End: 02-15-2024 Office outpatient new 45 minutes Caleb Hurtado MD Work Phone: [facility] Comment on above: Mixed stress and urg e urinary incontinence (Primary Dx); OAB (overactive bladder) Start: 02-09-2024 End: 02-09-2024 ambulatory SUSAN ANGELI Not Available Start: 02-09-2024 End: 02-09-2024 Patient encounter procedure Susan Angeli DO Work Phone: [facility] Comment on above: Pre-op examination; Menorrhagia with regular cycle; Abnormal uterine bleeding (AUB); Pelvic pain in female; Labial pain; Labia enlarged Start: 02-09-2024 End: 02-09-2024 Preprocedural examination done Susan Angeli DO Work Phone: [facility] Start: 12-28-2023 End: 12-28-2023 ambulatory Amor R SUAREZ Facility:[id number] Start: 12-21-2023 End: 12-21-2023 ambulatory Amor SUAREZ Facility:[facility] Start: 12-21-2023 End: 12-21-2023 Patient encounter procedure Amorgeovany SUAREZ [facility] Start: 11-24-2023 ambulatory Amorgeovany SUAREZ Facility :[facility] Start: 11-18-2023 End: 11-18-2023 Office outpatient visit 15 minutes Susan Angeli DO Work Phone: [facility] Comment on above: Urge incontinence of urine; Labial pain; Urinary incontinence, unspecified type; Urethral irritation; Dyspareunia in female; Menorrhagia with regular cycle Start: 11-18-2023 End: 11-18-2023 Bamboo flowsheet Susan Angeli DO Work Phone: [facility] Start: 11-18-2023 End: 11-18-2023 Bamboo flowsheet Susan Sorianoo DO Work Phone: [facility] Start: 11-18-2023 End: 11-18-2023 ambulatory SUSAN SUH Not Available Start: 10-12-2023 End: 10-12-2023 ambulatory SHEILA SAMUEL Not Available Start: 09-09-2023 End: 09-09-2023 ambulatory MASHA LANGE Not Available Procedures Date Procedure Procedure Detail Performing Clinician Start: 03-02-2024 ALL CBC WITH AUTO DIFF Susan Vanzio DO Work Phone: Start: 02-15-2024 MEASURE POST VOID RESIDUAL Caleb Hurtado MD Work Phone: Start: 02-15-2024 Urnls dip stick/tabl et rgnt non-auto w/o micrscp Caleb Hurtado MD Work Phone: Start: 02-09-2024 Urine test visual color cmprsn meths Susan Sorianoo DO Work Phone: H/O: tubal ligation S/P tubal ligation Am y Louis LEE Work Phone: Tonsillectomy Amor MILES Plan of Treatment Date Care Activity Detail Author Start: 02-15-2025 Tobacco Screening Tobacco Screening [facility] Start: 02-14-2025 Adult BMI Screening Adult BMI Screen ing [facility] Start: 02-14-2025 Tobacco Screening Tobacco Screening [facility] Start: 11-14-2024 Influenza vaccination P [facility] Start: 09-12-2024 End: 09-12-2024 Patient encounter procedure 09/12/2024 4:00 PM EDT Office Visit [facility] [address] [place] [address] Masha Lange, TATYANA [address], [place] [id number] [facility] Start: 06-30-2024 End: 06-30-2024 Patient encounter procedure 06/30/2024 3:00 PM EDT Office Visit [facility] [address] [place] [phone] Janene Myers PA [address] [place] [address] [facility] Start: 06-15-2024 End: 06-15-2024 Patient encounter procedure 06/15/2024 3:00 PM EDT Office Visit [facility] [address] [place] [address] Caleb Hurtado MD [address] [place] [address] [facility] Start: 04-11-2024 End: 04-11-2024 Patient encounter procedure [facility] Comment on above: Arrived Start: 03-14-2024 End: 03-14-2024 Patient encounter procedure [facility] Comment on above: Arrived Start: 11-30-2023 End: 11-30-2023 Professional / ancillary services management 11/30/2023 10:30 AM EDT Ancillary Procedure [facility] [address] [place] [phone] [facility] Start: 11-18-2023 End: 11-18-2023 Patient encounter procedure 11/18/2023 2:10 PM EDT Consult [facility] [address] [place] [phone] Susan Suh DO [address] [place] [address] Urge incontinence of urine; Labial pain [facility] Comment on above: Urge incontinence of urine; Labial pain Start: 11-18-2023 End: 11-17-2024 US for US PELVIS-TRANSVAG IF INDICATED Imaging Routine Dyspareunia in female Menorrhagia with regular cycle Expected: 11/18/2023 (Approximate), Expires: 11/17/2024 [facility] Work Phone: Comment on above: Expected: 11/18/2023 (Approximate), Expires: 11/17/2024 Start: 11-15-2023 Influenza vaccination N [facility] Start: 06-26-2021 Screening for malign ant neoplasm of cervix [facility] Start: 06-26-2012 Screening for malign ant neoplasm of cervix Pap Smear [facility] Start: 06-26-2010 DTaP,Tdap and Td Vaccines (1 - Tdap) DTaP,Tdap and Td Vaccines (1 - Tdap) [facility] Start: 06-26-2009 Adult BMI Follow Up Plan Adult BMI Follow Up Plan [facility] Start: 2003 Depression Screening Depression Scre ening [facility] Endometrial biopsy Endometrial b iopsy Procedures Routine Menorrhagia with regular cycle Ordered: 02/09/2024 [facility] Work Phone: Comment on above: Ordered: 02/09/2024 Immunizations Immunization Date Immunization Notes Care Provider Calrota malik 11-25-2020 SARS-CoV-2 (COVID-19 ) mRNA BNT-162b2 vax Amor SUAREZ [facility] Comment on above: Result Comment: 2023: TPVAL Payers Date Payer Category Payer Unknown [id number] 2023 [employer] Blue [employer] BCBS [id number] 2023 David [employer] - Other ANTHEM [id number] 2023 Unknown BCBS BCBS xxxxxx [id number] 2023-Present [phone] [id number] [place], [place] [id number] 2023 Unknown [id number] 1991 Unknown [id number]. 727 1991 Unknown [id number] [id number]. 727 1991 Unknown [id number]. 727 1991 Unknown [id number]. 1286 1991 Unknown [id number]. 1259 1991 Unknown [id number] [id number]. 9 1991 Unknown [id number]. 1259 1991 Unknown [id number]. 9 1991 Unknown [id number] [id number]. 1259 1991 Unknown [id number]. 1259 1991 Unknown [id number]. 1286 Social History Date Type Detail Facility Tobacco smoking status [facility] Start: 09-08-2023 End: 11-18-2023 Sex Assigned At Female [facility] Start: 09-09-2023 End: 02-15-2024 Tobacco smoking status ORIS Never smoked tobacco [facility] Start: 09-09-2023 End: 02-15-2024 Tobacco use and exposure Smokeless tobacco non-user [facility] Start: 11-18-2023 End: 04-11-2024 Alcoholic beverage intake Current drinker of alcohol (finding) [facility] Start: 09-08-2023 End: 11-18-2023 History of Social function [facility] How often do you nee d to have someone help you when you read instructions, pamphlets, or other written material from your doctor or pharmacy [SILS] Never [facility] Do you belong to any clubs or organizations such as scientology groups, unions, fraternal or athletic groups, or [...] Gender identity Identifies as female gender (finding) [facility] Start: 09-07-2023 Sexual orientation Heterosexual (finding) [facility] Start: 1990 Sex assigned at Not on file [facility] Start: 10-19-2014 Sex Female (finding) [facility] Functional Status Date Assessment Result Facility 12-21-2023 Functional Status N/A [facility] Clinical Notes 11-18-2023 to 06-22-2024 Telephone Encounter - Gabriela Troncoso - 06/22/2024 10:54 AM EDTTelephone Encounter - Gabriela Troncoso - 06/22/2024 10:54 AM Piotr Hurtado MD - 06/15/2024 3:00 PM ROSA Lamb - 04/11/2024 3:30 PM EST Note Date & Type Note Facility 06-22-2024 Telephone encount er Note Hi, this is Flaca Arnold, formerly known as CN Creative phone number is [phone] was just calling to see about getting some documentation around my 88ADHD diagnosis. I have not been taking any medications or anything for it for a very long time, but it does not Just go away and I am taking an exam that does not allow me to to mouth while I am taking the exam, which is something I do to deal with it. So I need some assistance with that if you could call me back. Thanks, bye. Lmom for patient to c/b to schedule an appointment to come in and discuss, Can be scheduled with Masha. [facility] 06-22-2024 Miscellaneous Notes Formattin g of this note might be different from the original. Hi, this is Flaca Arnold formerly known as CN Creative phone number is [phone] was just calling to see about getting some documentation around my 88ADHD diagnosis. I have not been taking any medications or anything for it for a very long time, but it does not Just go away and I am taking an exam that does not allow me to to mouth while I am taking the exam, which is something I do to deal with it. So I need some assistance with that if you could call me back. Thanks, byleslie. Timothyom for patient to c/b to schedule an appointment to come in and discuss, Can be scheduled with Masha. documented in this encounter [facility] 06-15-2024 History of Presen t illness Narrative SUBJECTIVE Chief Complaint: UI HPI Ms. Flaca Arnold is a 33 y.o. 1 para 1 referred 3 mos ago by for evaluation of urinary incontinence. She came for a 2nd opinion and was previously seen by . She was scheduled to undergo bilateral salpingectomy, endometrial ablation, bilateral labioplasty, with Dr. Suh on March 02, 2024. She was considering undergoing treatment for urinary incontinence concomitantly and had urodynamic testing with Dr. Suarez. She was offered a urethral sling. She wanted to discuss her options with the another provider. She noted urinary incontinence which had been present for many years. It had gotten worse since the of her child about 2 years prior. She leaked several times daily in variable amounts. She used 1-2 pads per day. Most of her leakage occurred with Valsalva. Urge related leakage was rare. She noted urinary frequency. She had an appointment to restart pelvic floor physical therapy. She reported that she underwent urodynamic testing and was told that she had stress incontinence. Pelvic examination here was essentially normal. Standing stress test was negative with over 200 mL in the bladder. Her postvoid residual was normal. Her urinalysis was negative. We discussed options and I did inform her that stress incontinence was typically treated with either surgery or pelvic floor physical therapy. She decided that she wanted to pursue the physical therapy. We also decided to proceed with a medication trial for her urgency and overactive bladder. Gemtesa was sent to her pharmacy. Unfortunately, this was not well covered by insurance and we transitioned to oxybutynin. She took this for about 2 weeks. She then underwent the planned surgery with Dr. Suh and discontinued the medication. She states that she has been recovering well from surgery. She has not noted significant urgency in the interim. She is doing the pelvic floor physical therapy and this is going well. Past Medical History: Diagnosis Date ADHD Depression GERD (gastroesophageal reflux disease) Past Surgical History: Procedure Laterality Date TONSILLECTOMY Current Outpatient Medications: turmeric 400 mg capsule, Take by mouth., Disp: , Rfl: ALLERGIES Milk containing products (dairy), Salicylates, and Latex OBJECTIVE VITAL SIGNS There were no vitals taken for this visit. PHYSICAL EXAM Constitutional: General: She is not in acute distress. Cardiovascular: Rate: Normal rate. Lower extremity edema: none. Pulmonary: Effort: No respiratory distress, normal effort. ASSESSMENT/PLAN ICD-10-CM 1. Mixed stress and urge urinary incontinence N39.46 Impression and Plan: 33 y.o. female P1 with stress predominant mixed urinary incontinence. She has noted some improvement in her symptoms with pelvic floor physical therapy although admits to some difficulty being consistent in her regimen. She would like to continue with conservative management at this time but is welcome to return at any time if she would like to further consider surgical intervention. This chart note was put together with [...] similarly generated notes. [facility] History of Presen t illness Narrative Reason for Appointment: Patient ID: Flaca Arnold is a 33 y.o. female who presents for Post-op Visit Patient presents today for 6 Week Post Op Follow Up appointment MEDICATIONS Current Outpatient Medications Medication Instructions Turmeric (QC TUMERIC COMPLEX PO) Take by mouth Vitamin C-Vitamin D-Zinc (D3/VITAMIN C/ZINC PO) Take by mouth ALLERGIES Allergies Allergen Reactions Other Diarrhea Latex Rash and Swelling Salicylates Other PROBLEMS Active Ambulatory Problems Diagnosis Date Noted No Active Ambulatory Problems Resolved Ambulatory Problems Diagnosis Date Noted No Resolved Ambulatory Problems Past Medical History: Diagnosis Date ADHD (attention deficit hyperactivity disorder) ([facility]/HCC) Allergic Depression (CMS/[facility]) GERD (gastroesophageal reflux disease) HISTORY PAST MEDICAL HISTORY SOCIAL HISTORY Past Medical History: Diagnosis Date ADHD (attention deficit hyperactivity disorder) ([facility]) Allergic Depression ([facility]) GERD (gastroesophageal reflux disease) Social History Tobacco Use Smoking status: Never Smokeless tobacco: Never Vaping Use Vaping status: Never Used Substance Use Topics Alcohol use: Yes Drug use: Yes Types: Marijuana FAMILY HISTORY No family history on file. SURGICAL HISTORY Past Surgical History: Procedure Laterality Date ENDOMETRIAL ABLATION 03/02/2024 SALPINGECTOMY Bilateral 03/02/2024 with Edgardo TONSILLECTOMY TUBAL LIGATION Bilateral 03/02/2024 REVIEW OF SYSTEMS Review of Systems: Review of Systems Constitutional: Negative. HENT: Negative. Eyes: Negative. Respiratory: Negative. Cardiovascular: Negative. Gastrointestinal: Negative. Genitourinary: Negative. Musculoskeletal: Negative. Skin: Negative. Neurological: Negative. All other systems reviewed and are negative. Hematological: Negative. Endocrine: Negative. Allergic/Immunologic: Negative. OBJECTIVE Objective: Physical Exam Constitutional: Appearance: Normal appearance. She is normal weight. Genitourinary: Right Labia: No rash or tenderness. Left Labia: No tenderness or rash. Right Adnexa: not tender. Left Adnexa: not tender. HENT: Head: Normocephalic. Cardiovascular: Rate and Rhythm: Normal rate. Pulses: Normal pulses. Pulmonary: Effort: Pulmonary effort is normal. Breath sounds: Normal breath sounds. Abdominal: Palpations: Abdomen is soft. Musculoskeletal: General: Normal range of motion. Neurological: General: No focal deficit present. Mental Status: She is alert and oriented to person, place, and time. Psychiatric: Mood and Affect: Mood normal. Behavior: Behavior normal. Thought Content: Thought content normal. Judgment: Judgment normal. Vitals and nursing note reviewed. Vitals: Estimated body mass index is 32.39 kg/m as calculated from the following: Height as of 09/09/23: 5' 5.25 . Weight as of this encounter: 196 lb 1.9 oz. BP: 120/70 No LMP recorded (lmp unknown). Patient has had an ablation. ASSESSMENT & PLAN ICD-10-CM 1. Postoperative examination Z09 Patient presents for follow up s/p bilateral salpingectomy with edgardo ablation with hysteroscopy and bilateral labioplasty. States still having some tenderness, none today on exam Documented by ROSA Orourke on behalf of: ROSA Orourke documented in this encounter [facility] 03-14-2024 History of Presen t illness Narrative Reason for Appointment: Patient ID: Flaca Arnold is a 33 y.o. female who presents for Post-op Visit (Pt present today for post operative visit. Pt had an Endometrial ablation/salpingectomy on 03/02/2024.) Patient presents today for 1 Week Post Op Follow Up appointment. MEDICATIONS Current Outpatient Medications Medication Instructions cephalexin (KEFLEX) 500 mg, Oral, 3 times daily mupirocin (Bactroban) 2 % ointment Topical, 3 times daily RT Turmeric (QC TUMERIC COMPLEX PO) Oral Vitamin [...] History: Procedure Laterality Date ENDOMETRIAL ABLATION 03/02/2024 TONSILLECTOMY TUBAL LIGATION Bilateral 03/02/2024 REVIEW OF SYSTEMS Review of Systems: Review of Systems Constitutional: Negative. HENT: Negative. Eyes: Negative. Respiratory: Negative. Cardiovascular: Negative. Gastrointestinal: Negative. Genitourinary: Negative. Musculoskeletal: Negative. Skin: Negative. Neurological: Negative. All other systems reviewed and are negative. Hematological: Negative. Endocrine: Negative. Allergic/Immunologic: Negative. OBJECTIVE Objective: Physical Exam Constitutional: Appearance: Normal appearance. She is normal weight. Genitourinary: Genitourinary Comments: Right labia repair, healing well sutures intact HENT: Head: Normocephalic. Cardiovascular: Rate and Rhythm: Normal rate. Pulses: Normal pulses. Pulmonary: Effort: Pulmonary effort is normal. Breath sounds: Normal breath sounds. Abdominal: Palpations: Abdomen is soft. Musculoskeletal: General: Normal range of motion. Neurological: General: No focal deficit present. Mental Status: She is alert and oriented to person, place, and time. Skin: General: Skin is warm. Psychiatric: Mood and Affect: Mood normal. Behavior: Behavior normal. Thought Content: Thought content normal. Judgment: Judgment normal. Vitals and nursing note reviewed. Vitals: Estimated body mass index is 31.71 kg/m as calculated from the following: Height as of 09/09/23: 5' 5.25 . Weight as of 02/09/24: 192 lb. BP: No LMP recorded. ASSESSMENT & PLAN ICD-10-CM 1. Postoperative visit Z48.89 2. S/P endometrial ablation Z98.890 3. S/P tubal ligation Z98.51 Post Op Follow Up: Patient presents today for a postop follow up after having a Bilateral Laparoscopic Salpingectomy/endometrial ablation performed at [facility] with Dr. Suh. Patient is healing well and shows no signs or symptoms of infection. Pathology results was reviewed with the patient in great detail and all restrictions have been lifted. Follow Up: Patient is to return to the office for annual exam unless needed otherwise. Documented by Erin Ochoa MA on behalf of: ROSA Orourke documented in this encounter [facility] 02-15-2024 History of Presen t illness Narrative [...] hard coughing or Valsalva? not present Modified [place] Scale 0-5: 1, minor muscle flicker POP-Q: [...] similarly generated notes. documented in this encounter [facility] 02-09-2024 History of Presen t illness Narrative Images from the original note were not included. Reason for Appointment: Patient ID: Flaca Arnold is a 33 y.o. female who presents for Pre-op Visit and Endometrial Biopsy Patient presents today for Pre Op/Endometrial Biopsy appointment. Patient is scheduled to undergo Da Hugh assisted Bilateral Laparoscopic Salpingectomy, Endometrial Ablation with Edgardo, and Labiaplasty on 03/02/[address] Suh at [facility]. MEDICATIONS Current Outpatient Medications Medication Instructions Turmeric [...] nursing note reviewed. Exam conducted with a boiler welder present. Vitals: Estimated body mass index is [...] assisted Bilateral Laparoscopic Salpingectomy, Endometrial Ablation with Edgardo, & Labiaplasty on 03/02/2024. Surgical consents were signed, mmc was reviewed, and patient is to proceed to [facility] OR. Follow Up: Patient is to follow up between 1-2 weeks post op to assess proper healing and recovery from procedure. Documented by Jacqueline Larios LPN on behalf of: Susan Suh DO documented in this encounter [facility] 12-21-2023 Hospital Discharg e instructions Patient Education [...] including vitamins, herbs, eye drops, creams, and bpfa-fhf-dpbdgny medicines. Any problems you or family members [...] provider tells you to take them. Taking yous-mks-ethemuz medicines, vitamins, herbs, and supplements. Tests You [...] Follow these instructions at home: Medicines Take pdsd-ykz-bgsxytw and prescription medicines only as told by [...] provider. Document Revised: 11/13/2021 Document Reviewed: 10/12/2020 [employer] Patient Education 2023 [employer]. 12/21/2023 09:54:38 Urinary Incontinence Urinary Incontinence Urinary [...] (electrical nerve stimulation). ?For women, using a medical accounting clerk to prevent urine leaks. This is a [...] right after experiencing incontinence. General instructions Take hmiq-xkg-xthgikb and prescription medicines only as told by [...] important. Where to find more information National [place] of Diabetes and Digestive and Kidney Diseases: www.niddk.nih.gov [employer] [employer]: www.urologyhealth.org Contact a health care [...] provider. Document Revised: 10/05/2020 Document Reviewed: 10/05/2020 [employer] Patient Education 2023 [employer]. Follow Up Care 11/24/2023 15:33:52 With:MILES MOHR, Amor Jacobs, URL Address: [facility] [address], [place] [address]- [phone] When: Unknown Comments:sched cysto w/ pelvic exam [facility] Note Patient Education Urology Cystoscopy Cystoscopy [...] including vitamins, herbs, eye drops, creams, and ihjv-gcl-vbaesuh medicines. ? Any problems you or family [...] tells you to take them. ? Taking yvug-pyr-wmzamhl medicines, vitamins, herbs, and supplements. Tests You [...] these instructions at home: Medicines ? Take rhrz-ivk-ksalcvm and prescription medicines only as told by [...] health care provider, (more content not included)... [facility] 11-18-2023 History of Presen t illness Narrative Reason for Appointment: Patient ID: Flaca Arnold is a 33 y.o. female who presents for Urinary Incontinence (Pt referred to Angeli by Karen Samuel. Pt is also present today to discuss right labial pain.) Patient presents today for Acute Visit. MEDICATIONS Current Outpatient Medications Medication Instructions Turmeric [...] appearance. She is well-developed. Genitourinary: Vulva normal. Cardiovascular: Rate and Rhythm: Normal rate and [...] nursing note reviewed. Exam conducted with a boiler welder present. Vitals: Estimated body mass index is 30.55 kg/m as calculated from the following: Height as of 09/09/23: 5' 5.25 . Weight as of this encounter: 185 lb. BP: 114/70 No LMP recorded. ASSESSMENT & PLAN ICD-10-CM 1. Urge incontinence of urine N39.41 Ambulatory referral to Obstetrics / Gynecology 2. Labial pain N94.89 Ambulatory referral to Obstetrics / Gynecology 3. Urinary incontinence, unspecified type R32 4. Urethral irritation N36.8 5. Dyspareunia in female N94.10 6. Menorrhagia with regular cycle N92.0 Pt presents with discomfort/pain in labia from delivery of a 10 pound 6 oz baby. Pt has low sex drive after delivery. Pt has urinary incontinence. Pelvic exam performed. Cystocele noted. Pt has urethral insufficiency. Pt being referred to Dr Lopez. Discussed the possibility or seeing a uro/skate hop, also having Dr Angeli cavazos labiaplasty. Pt having menorrhagia, heavy bleeding discussed hormonal therapy and endometrial ablation. Pt desires endometrial ablation. Pt to see Dr Lopez for potential bladder sling. Pt to return for preop for labiaplasty and endometrial ablation. Documented by Jacqueline Larios LPN on behalf of: Susan Suh DO documented in this encounter [facility] Healthcare Evaluation + Plan note No data available for this section [facility] Evaluation note Diagnosis Pre-op examination Menorrhagia with regular cycle Abnormal uterine bleeding (AUB) Pelvic pain in female Unspecified symptom associated with female genital organs Labial pain Unspecified symptom associated with female genital organs Labia enlarged Hypertrophy of labia [facility] Diagnosis Urge incontinence of urine Urge incontinence Labial pain Unspecified symptom associated with female genital organs Urinary incontinence, unspecified type Urethral irritation Dyspareunia in female Menorrhagia with regular cycle [facility] Diagnosis Postoperative visit S/P endometrial ablation Other postprocedural status S/P tubal ligation Tubal ligation status [facility] Diagnosis Postoperative examination Follow-up examination, following unspecified surgery [facility] Diagnosis Mixed stress and urge urinary incontinence- Primary Mixed incontinence urge and stress (male)(female) OAB (overactive bladder) [facility] Mixed stress and urge urinary incontinence- Primary Mixed incontinence urge and stress (male)(female) [facility] filedocumented in this encounter [facility] filedocumented in this encounter [facility]ructions[facility] on filedocumented in this encounter [facility] on filedocumented in this [facility] No data available for this section [facility] Summary Purpose Family History No Family History Records Found Advance Directives No Advanced Directives Records FoundNo Advanced Directives Records FoundNo Advanced Directives Records FoundNo Advanced Directives Records Found Additional Source Comments Patient Care team informatio n (unrecognized section and content) Kettle Loader Relationship Specialty Start Date End Date Pippa Islas MD [address] [place] [address] PCP - General Family Medicine 07/22/22 Kettle Loader Relationship Specialty Start Date End Date Pippa Islas MD [address] [place] [address] PCP - General Family Medicine 07/22/22 Kettle Loader Relationship Specialty Start Date End Date Pippa Islas MD [address] [place] [address] PCP - General Family Medicine 07/22/22 Kettle Loader Relationship Specialty Start Date End Date Pippa Islas MD [address] [place] [address] PCP - General Family Medicine 07/22/22 Kettle Loader Relationship Specialty Start Date End Date Pippa Islas MD [address] [place], [place] [id number] PCP - General Family Medicine 07/22/22 INFORMATION SOURCE (unrecogn ized section and content) DATE CREATED AUTHOR 01/14/2024 [facility] DATE CREATED AUTHOR AUTHOR'S ORGANIZ ATION 02/16/2024 [facility] DATE CREATED AUTHOR AUTHOR'S ORGANIZ ATION 04/12/2024 [facility] DATE CREATED AUTHOR AUTHOR'S ORGANIZ ATION 06/18/2024 [facility] Reason for Visit (unrecogniz ed section and content) Reason Comments Pre-op Visit Endometrial Biopsy Reason Comments Urinary Incontinence Pt referred to Christie hassan by Karen Samuel. Pt is also present today to discuss right labial pain. Specialty Diagnoses / Procedures Referred By Jacqui pratt Referred To Contact Obstetrics and Gynecology Diagnoses Urge incontinence of urine Labial pain Procedures [place] OFFICE/OUTPATIENT NEW HIGH MDM 60 MINUTES Sheila Samuel, SARITA [address] [place] [address] Susan Suh, DO [address] [place] [address] Referral ID Status Reason Start Date Expiration Date V isits Requested Visits Authorized [id number] Closed Specialty Services Required 10/13/2023 04/10/2024 1 1 Reason Comments Post-op Visit Pt present today for post operative visit. Pt had an Endometrial ablation/salpingectomy on 03/02/2024. Reason Comments Post-op Visit Reason Comments Urinary Incontinence Specialty Diagnoses / Procedures Referred By Jacqui pratt Referred To Contact Urogynecology Diagnoses Urge incontinence Dyspareunia, female Urinary incontinence, unspecified type Susan Suh, DO [address] [place] [address] Phone: tel: fax: Caleb Hurtado MD [address] [place] [id number] Phone: tel: fax: Referral ID Status Reason Start Date Expiration Date Visits Re quested Visits Authorized [id number] Closed 01/29/2024 01/28/2025 1 1 Reason Comments Med Management FOR RECORDS PERTAINING TO PATIENTS WHO ARE [...] BE BASED ON THE PRIMARY CLINICAL RECORDS. [facility]. provides no warranty or guarantee of the accuracy or completeness of information in this document.
--- OUTSIDE RECORDS SUMMARY | 2024-08-18 20:10 | XMS_ITS | Encounter Summary ---
Author Organization [facility] Address [address] [place] [address] [place] [address] Care Team Providers Care Painter Airbrush Name Role Phone Pippa Bobby MD Primary Care Provider [phone] Encounter Details Date Type Department Care Team (Late st Contact Info) Description 08/18/2024 Bamboo flowsheet [facility] [address] [place] [address] Janene Maria PA [address] [place], [facility] Social History Tobacco Use Types Packs/Day [...] often do you attend chur ch or gnosticism services? Never 09/08/2023 Do you belong to any clubs o r organizations such as restorationist groups, unions, fraternal or athletic groups, or [...] medical care, and heating? Somewhat hard 09/08/2023 [facility] [place] of Occupat ional Health - Occupational Stress [...] any time in the past 12 m [facility], were you homeless or living in a [place] health care facility (including now)? No 09/08/2023 Comments No Sex [...] EDT Office Visit [facility] [address] [place] [address] Sujata Lange NP [address] [place], [place] [id number] documented as of this encounter Visit Diagnoses Not on filedocumented in this encounter Care Teams Painter Airbrush Relationship Specialty Start Date End Date Pippa Bobby MD [address] [place], [place] [id number] PCP - General Family Medicine 07/22/22 documented as of this encounter
--- OUTSIDE RECORDS SUMMARY | 2024-08-18 20:10 | XMS_ITS | Encounter Summary ---
Author Organization [facility] Address [address] [place] [address] Care Team Providers Care Interstate Bus Driver Name Role Phone Pippa Bobby MD Primary Care Provider [phone] Encounter Details Date Type Department Care Team (Latest Contact Info) Description 08/14/2024 Travel Social History Tobacco Use Types Packs/Day Years [...] often do you attend chur ch or yazidism services? Never 09/08/2023 Do you belong to any clubs o r organizations such as religious groups, unions, fraternal or athletic groups, or [...] medical care, and heating? Somewhat hard 09/08/2023 [facility] of Occupat ional Health - Occupational Stress [...] any time in the past 12 m [facility], were you homeless or living in [...] EDT Office Visit [facility] [address] [place] [address] Sujata Lange NP [address] [place] [address] documented as of this encounter Visit Diagnoses Not on filedocumented in this encounter Care Teams Interstate Bus Driver Relationship Specialty Start Date End Date Pippa Bobby MD [address] [facility] [place] [id number] PCP - General Family Medicine 07/22/22 documented as of this encounter
[2024-08-23 15:08] LABS: Age Gdln ACOG Testing Note (.); HPV Aptima Negative (Negative); IGP, Aptima HPV, rfx 16/18,45 Note (.)
== END 2024-08-18 20:07 | disposition home or self-care (01) ==
LOC: LAB 20:06
PROVIDERS: PCP Family Medicine; Visit Provider Physician Assistant
DX: Z01.419 Encounter for gynecological examination (general) (routine) without abnormal findings (principal)
CPT/HCPCS: 87624; 88175